=== PATIENT | male | born 1950 | race American Indian/Alaskan Native ===

== ENCOUNTER 2016-10-20 14:19 | Day surgery (SDC) | payer MEDICARE ==
[2016-10-20] MEDS ORDERED: NACL 0.9% 1000 ML 1,000 ML IV SCH (15:00)
[2016-10-20] MEDS ORDERED: WATER FOR IRRIG STERILE IR ONE (15:08)
[2016-10-20] MEDS ORDERED: DIPRIVAN 10 MG/ML IV ONE ×3 (15:16)
--- NOTE | 2016-10-20 16:06 | History and Physical Report ---
History of Present Illness Date of examination: 10/20/16 Date of admission: 10/20/2016 Chief complaint: Abdominal pain and nausea vomiting anorexia or weight loss constipation past history of colon cancer History of present illness: Patient is a 66-year-old male who presented with progressive anorexia and early satiety weight loss and diffuse abdominal pain but didn't particularly in the periumbilical region. She has a past history of colon cancer about 10 years ago. 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 Patient had been doing relatively well until recently when the symptoms began. In this period, he has lost more than 50 pounds. Patient now presents for further evaluation with an upper endoscopy as well as a colonoscopy. Of significant note about 2-3 years ago patient had a PET scan that showed an uptake in the duodenum. An upper endoscopy was done at the time with biopsied in the third portion of the duodenum with no abnormal mucosal findings at the time. This area was tattooed. On this examination, it is felt that even if they're findings, this may help direct patient's treatment. Past History Past Medical History: diabetes, GERD, hypertension Past Surgical History: Other (partial/ segmental colectomy for colon cancer) Medications and Allergies Allergies Allergy/AdvReac Type Severity Reaction Status Date / Time No Known Allergies Allergy Verified 09/05/13 10:04 Home Medications Medication Instructions Recorded Confirmed Last Taken Type Amlodipine Besylate/Benazepril 1 tab PO DAILY 02/06/13 02/11/14 10/18/16 History [Amlodipine-Benazepril 10-20 mg] Atenolol [Tenormin] 100 mg PO BID 02/06/13 02/11/14 10/18/16 History Doxazosin [Cardura] 2 mg PO QPM 02/06/13 02/11/14 10/18/16 History metFORMIN [Glucophage] 1 tab PO BID 02/06/13 02/11/14 10/18/16 06:00 History Insulin Glargine,Hum.rec.anlog 20 units SQ QPM 09/04/13 02/11/14 10/08/15 History [Lantus Solostar] Omeprazole [Omeprazole] 1 cap PO DAILY 09/04/13 02/11/14 10/18/16 History glyBURIDE/METFORMIN HCL 1 tab PO DAILY 09/04/13 02/11/14 10/18/16 History [Glyburide-Metformin 5-500 mg] Active Meds: Active Medications Sodium Chloride (Nacl 0.9% 1000 Ml) 1,000 mls @ 50 mls/hr IV DIRECT PATRICK Last Admin: 10/20/16 15:14 Dose: 50 mls/hr Review of Systems All systems: negative Exam - Constitutional Vitals: Temp Pulse Resp BP Pulse Ox 99.1 F 70 22 154/75 97 10/20/16 15:10 10/20/16 15:10 10/20/16 15:10 10/20/16 15:10 10/20/16 15:10 General appearance: Present: no acute distress, well-nourished - EENT Eyes: Present: PERRL ENT: hearing intact, clear oral mucosa - Neck Neck: Present: supple, normal ROM - Respiratory Respiratory effort: normal Respiratory: bilateral: CTA - Cardiovascular Heart Sounds: Present: S1 & S2. Absent: rub, click - Extremities Extremities: pulses symmetrical, No edema Peripheral Pulses: within normal limits - Abdominal General gastrointestinal: Present: soft, non-tender, non-distended, normal bowel sounds Male genitourinary: Present: normal - Integumentary Integumentary: Present: clear, warm, dry - Musculoskeletal Musculoskeletal: gait normal, strength equal bilaterally - Psychiatric Psychiatric: appropriate mood/affect, intact judgment & insight - Neurologic Neurologic: CNII-XII intact, moves all extremities Results - Labs Labs: Abnormal lab results 10/20/16 Range/Units 15:02 POC Glucose 200 H (70-105) Assessment and Plan Abdominal pain and anorexia early satiety and weight loss constipation and past history of colon cancer. Plan: Follow upper endoscopy and a full colonoscopy will be done.
--- NOTE | 2016-10-20 16:08 | Anesthesia Day of Surgery ---
Anesthesia Day of Surgery - Day of Surgery Patient Examined: Yes Patient H&P Reviewed: Yes Patient is NPO: Yes
--- NOTE | 2016-10-20 16:10 | Anesthesia Consultation ---
Anesthesia Consult and Med Hx Date of service: 10/20/16 - Airway Anesthetic Teeth Evaluation: Good ROM Head & Neck: Adequate Mental/Hyoid Distance: Adequate Mallampati Class: Class II Intubation Access Assessment: Probably Good - Pulmonary Exam CTA: Yes - Cardiac Exam Cardiac Exam: RRR - Pre-Operative Health Status ASA Pre-Surgery Classification: ASA3 Proposed Anesthetic Plan: MAC - Pulmonary Hx Smoking: No Hx Asthma: No Hx Respiratory Symptoms: No SOB: No COPD: No Hx Pneumonia: No Hx Sleep Apnea: No - Cardiovascular System Hx Hypertension: Yes Hx Coronary Artery Disease: No Hx Heart Attack/AMI: No - Central Nervous System Hx Seizures: No CVA: No - Gastrointestinal Hx Ulcer: No Hx Gastroesophageal Reflux Disease: No - Endocrine Hx Renal Disease: No Hx Liver Disease: No Hx Insulin Dependent Diabetes: Yes Hx Non-Insulin Dependent Diabetes: Yes Hx Thyroid Disease: No - Hematic Hx Anemia: Yes Hx Sickle Cell Disease: No - Other Systems Hx Cancer: Yes (colon ca sp partial colectomy) Hx Obesity: No - Additional Comments Anesthesia Medical History Comments: NAC
--- NOTE | 2016-10-20 16:11 | Operative Report ---
Operative Report Operative Report: Date of procedure: 10/20/2016 Procedure: Colonoscopy Attending physician: Jared Pratt MD Silk Soaker: Jared Pratt MD Indication: Patient is a 66-year-old male who presented with history of constipation and abdominal pain and abnormal weight loss. He has a past history of colon cancer and had a resection and for treatment many years ago he had been doing relatively well and had onset of these symptoms in the past few months. This procedure is done to evaluate patient so that treatment may be directed based on the findings. Consent: Informed consent was obtained after advising the patient and family regarding nature of this procedure, its indications, potential benefits as well as possible complications including but not limited to bleeding perforation and adverse reaction to medication, infection as well as other cardiopulmonary complications. An informed written and verbal consent was then obtained after due opportunity was provided for questions and answers. Monitoring: Patient was monitored continuously with pulse oximetry and electrocardiographic recordings as well as blood pressure recordings. Vital signs remained stable throughout this procedure with no untoward events. Preoperative assessment: Patient was assessed immediately prior to this procedure for capacity to tolerate monitored anesthesia care and moderate sedation as well as general anesthesia. Patient's ASA classification is 2, Mallampati class is 2, Hyomental distance is 3. Instrument: [employer] Simplifiedn videocolonoscope Medications: Propofol given intravenously in divided doses. For details please potential records. Description of procedure: Patient was placed in the left lateral decubitus position after achieving sedation, a digital rectal examination was performed following which the colonoscope was introduced into the anal verge and advanced to the cecum which was identified by the cecal valve, the appendiceal orifice, as well as by the cecal strap and direct transillumination. The colonoscope was subsequently withdrawn with careful inspection of all mucosal surfaces. Patient tolerated this procedure well and was subsequently taken to the recovery room. The following findings were noted. Findings: The sigmoid anastomosis was normal. The examination to the cecum was entirely normal. Previously tattooed areas at the sigmoid anastomosis appeared intact with no abnormalities seen around this areas. The small intestine was intubated for a distance of 70 cm. The entire examined segments of the small intestine appeared normal. On the retroflex view at the anal verge, patient had internal hemorrhoids. Impression: Normal colonoscopy Plan: Continue high-fiber diet and stool softeners. Patient may require additional imaging studies in light of his symptoms. Additional steps will be taken in outpatient follow-up.
--- NOTE | 2016-10-20 16:18 | Operative Report ---
Operative Report Operative Report: Date of procedure: 10/20/2016 Procedure: Esophagogastroduodenoscopy with multiple biopsies Attending physician: Jared Pratt MD Director [facility]: Jared Pratt MD Indication: Patient is a 66-year-old male who presented with history of dyspepsia with early satiety and nausea vomiting and weight loss with anorexia. An upper endoscopy is done to assess patient so that treatment may be directed based on the findings. Consent: Informed consent was obtained after advising the patient and family regarding nature of this procedure, its indications, potential benefits as well as possible complications including but not limited to bleeding perforation and adverse reaction to medication, infection as well as other cardiopulmonary complications. An informed written and verbal consent was then obtained after due opportunity was provided for questions and answers. Monitoring: Patient was monitored continuously with pulse oximetry and electrocardiographic recordings as well as blood pressure recordings. Vital signs remained stable throughout this procedure with no untoward events. Preoperative assessment: Patient was assessed immediately prior to this procedure for capacity to tolerate monitored anesthesia care and moderate sedation as well as general anesthesia. Patient's ASA classification is 2, Mallampati class is 2, Hyomental distance is 3. Instrument: StreamLine Calln video endoscope Medications: Propofol given intravenously in divided doses. For details please refer to anesthesia records. Description of procedure: Patient was placed in the left lateral decubitus position after achieving sedation, the endoscope was introduced into the esophagus under direct vision. It was then advanced beyond the esophagus into the stomach and then beyond the stomach into the duodenum and to the second portion of the duodenum. It was subsequently withdrawn with careful inspection of all mucosal surfaces with the following findings. Findings: Esophagus was normal. There was a small sliding hiatal hernia seen on entry into the stomach. This was otherwise normal. There was some erosions seen in the gastric antrum. Biopsies were obtained to rule out gastritis. The first portion of the duodenum was normal. The second portion of the duodenum was normal. In the third portion there was a previously examined segments that was tattooed. In this area, there was a prominent mucosal fold with no abnormalities seen around the fold except for its prominence. This was biopsied. More distal in the third portion of the duodenum, there was 2 areas where there were prominent mucosal folds again which were biopsied. There were no gross mucosal abnormalities otherwise. There was no gross mass lesions seen. The endoscope was advanced through this furthest distance as well as possible. It was subsequently withdrawn completely from patient after completing the examination. Impression: Prominent mucosal fold in the third portion of the duodenum which was biopsied. Note there was no lesions seen in this area. Gastric antral erosions status post biopsies. Plan: Follow pathology report and direct additional treatment based on pathology report. Patient may require additional imaging studies in light of his symptoms and past history of colon cancer. Additional steps will be taken in outpatient follow-up.
[2016-10-20 16:34] VITALS: BP 157/74
--- NOTE | 2016-10-20 16:38 | Post Anesthesia Evaluation ---
- Post Anesthesia Evaluation Patient Participated: Yes Airway Patent: Yes Stable Respiratory Function: Yes Nausea/Vomiting: No Temp > 96.8F: Yes Pain Manageable: Yes Adequeate Hydration: Yes Anesthesia Complications: No Block Receding Appropriately: Not Applicable Patient on Ventilator: No
== END 2016-10-20 14:20 | disposition home or self-care (01) ==
LOC: GIO 14:19
PROVIDERS: ATTEND Internal Medicine Gastroenterology
DX: K29.80 Duodenitis without bleeding (principal); K44.9 Diaphragmatic hernia without obstruction or gangrene; K64.8 Other hemorrhoids; I10 Essential (primary) hypertension; E11.9 Type 2 diabetes mellitus without complications; K21.9 Gastro-esophageal reflux disease without esophagitis; D64.9 Anemia, unspecified; Z85.038 Personal history of other malignant neoplasm of large intestine; Z90.49 Acquired absence of other specified parts of digestive tract; Z98.0 Intestinal bypass and anastomosis status; Z79.899 Other long term (current) drug therapy; Z79.4 Long term (current) use of insulin
CPT/HCPCS: 43239; 45378; 82962; 88305; 88342; J2704; J7030

== ENCOUNTER 2017-08-10 08:39 | Outpatient (CLI) | payer MEDICARE ==
--- NOTE | 2017-08-15 11:29 | PET Report ---
PET/CT:08/10/17 08:39:00 CLINICAL: Colon cancer restaging. RADIOPHARMACEUTICAL: 15.55mCi F18-FDG. COMPARISON: 08/15/13 PET/CT TECHNIQUE- Following intravenous injection of F-18 FDG and an approximately 60 minute uptake period, CT and PET images from the mid skull to the upper thighs were acquired with the patient in the fasted state. No contrast was administered. The CT protocol used for this PET CT study is designed for attenuation correction and anatomic localization of PET abnormalities. This sample preparation supervisor CT is not desired to produce and cannot replace, fqtom-ms-gnn-art diagnostic CT scans with specific imaging protocols for different body parts and indications. Plasma glucose at the time of this test: 188g/dl. The standardized uptake values (SUV) are normalized to patient body weight and indicate the highest activity concentration (SUV max) in a given disease site. FINDINGS: Brain--Physiologic FDG uptake in the visualized regions of the brain. Neck--Physiologic FDG uptake in mucosal structures and benign uptake in right neck muscles. Chest--Physiologic FDG uptake in mediastinal blood pool and myocardium. Lungs--No abnormal uptake. No pulmonary nodule or mass. Pleura/pericardium--No abnormal uptake. Thoracic nodes--No abnormal uptake. Hepatobiliary--No abnormal uptake. Liver background SUV mean, as a reference for comparing FDG studies, is 2.4 compared to 2.3 on the last exam. No liver mass. Spleen--No abnormal uptake. Pancreas--No abnormal uptake. Adrenal Glands--No abnormal uptake. Kidneys/Ureters/Bladder--No abnormal uptake. Abdominopelvic Nodes--No abnormal uptake. Bowel/Peritoneum/Mesentery--No abnormal uptake. The previous described abnormal left lower quadrant FDG uptake has resolved. No residual mass identified in the vicinity of surgical clips. Pelvic organs--No abnormal uptake. Bones/Soft Tissues--No abnormal uptake. Other findings: Benign FDG uptake in the hips and thighs. IMPRESSION- Positive response to treatment with resolution of pathologic FDG uptake in the left lower quadrant abdomen. No evidence of intraperitoneal, pulmonary, hepatic, rosie or skeletal metastasis.
== END 2017-08-10 08:40 | disposition home or self-care (01) ==
LOC: PET 08:39
DX: C18.5 Malignant neoplasm of splenic flexure (principal); R79.89 Other specified abnormal findings of blood chemistry; I10 Essential (primary) hypertension; E07.9 Disorder of thyroid, unspecified; D64.9 Anemia, unspecified; E11.9 Type 2 diabetes mellitus without complications; Z82.49 Family history of ischemic heart disease and other diseases of the circulatory system
CPT/HCPCS: 78815; 82962; A9552

== ENCOUNTER 2017-11-09 10:51 | Outpatient (CLI) | payer MEDICARE ==
--- NOTE | 2017-11-10 11:49 | PET Report ---
PET/CT:11/09/17 10:51:00 CLINICAL: Colon cancer restaging. RADIOPHARMACEUTICAL: 12.705mCi F18-FDG. COMPARISON: 08/10/17 PET/CT TECHNIQUE- Following intravenous injection of F-18 FDG and an approximately 60 minute uptake period, CT and PET images from the mid skull to the upper thighs were acquired with the patient in the fasted state. No contrast was administered. The CT protocol used for this PET CT study is designed for attenuation correction and anatomic localization of PET abnormalities. This pickle processor CT is not desired to produce and cannot replace, lhbpk-df-vxz-art diagnostic CT scans with specific imaging protocols for different body parts and indications. Plasma glucose the time of this test: 115g/dl. The standardized uptake values (SUV) are normalized to patient body weight and indicate the highest activity concentration (SUV max) in a given disease site. FINDINGS: Brain--Physiologic FDG uptake in the visualized regions of the brain. Neck--Physiologic FDG uptake in mucosal structures. Chest--Physiologic FDG uptake in mediastinal blood pool and myocardium. Lungs--No abnormal uptake. No pulmonary nodule or mass. Pleura/pericardium--No abnormal uptake. A tiny left pleural effusion. Thoracic nodes--No abnormal uptake. Hepatobiliary--No abnormal uptake. Liver background SUV mean, as a reference for comparing FDG studies, is 3.5 . No liver mass. Spleen--No abnormal uptake. Pancreas--No abnormal uptake. Adrenal Glands--No abnormal uptake. Kidneys/Ureters/Bladder--No abnormal uptake. Abdominopelvic Nodes--No abnormal uptake in no lymphadenopathy. Bowel/Peritoneum/Mesentery--No abnormal uptake. Status post partial colectomy with multiple anastomoses and numerous surgical clips in the abdomen. No mass. Pelvic organs--No abnormal uptake. Bones/Soft Tissues--No abnormal uptake. Other findings: IVC filter IMPRESSION- Negative study with no evidence of disease recurrence or metastasis.
== END 2017-11-09 10:52 | disposition home or self-care (01) ==
LOC: PET 10:51
DX: C18.9 Malignant neoplasm of colon, unspecified (principal); J90 Pleural effusion, not elsewhere classified; I10 Essential (primary) hypertension; E11.9 Type 2 diabetes mellitus without complications
CPT/HCPCS: 78815; 82962; A9552

== ENCOUNTER 2018-10-18 13:52 | Day surgery (SDC) | payer MEDICARE ==
[2018-10-18] MEDS ORDERED: XYLOCAINE MPF 2% ONE (14:00)
[2018-10-18] MEDS: NACL 0.9% 1000 ML 1,000 ML IV SCH ×2 (14:52→15:57)
[2018-10-18] MEDS ORDERED: DIPRIVAN 10 MG/ML IV ONE (14:54)
--- NOTE | 2018-10-18 15:33 | Anesthesia Day of Surgery ---
Anesthesia Day of Surgery - Day of Surgery Patient Examined: Yes Patient H&P Reviewed: Yes Patient is NPO: Yes Beta Blockers: No
--- NOTE | 2018-10-18 15:34 | Anesthesia Consultation ---
Anesthesia Consult and Med Hx Date of service: 10/18/18 - Airway Anesthetic Teeth Evaluation: Good ROM Head & Neck: Adequate Mental/Hyoid Distance: Adequate Mallampati Class: Class III Intubation Access Assessment: Good - Pulmonary Exam CTA: Yes - Pre-Operative Health Status ASA Pre-Surgery Classification: ASA3 Proposed Anesthetic Plan: MAC - Pulmonary Hx Smoking: No Hx Asthma: No Hx Respiratory Symptoms: No SOB: No COPD: No Hx Pneumonia: No Hx Sleep Apnea: No - Cardiovascular System Hx Hypertension: Yes Hx Coronary Artery Disease: No Hx Heart Attack/AMI: No Hx Angina: No Hx Percutaneous Transluminal Coronary Angioplasty (PTCA): No Hx Cardia Arrhythmia: No Hx Pacemaker: No Hx Internal Defibrillator: No Hx Valvular Heart Disease: No Hx Heart Murmur: No Hx Peripheral Vascular Disease: No - Central Nervous System Hx Neuromuscular Disorder: No Hx Seizures: No CVA: No Hx Back Pain: No Hx Psychiatric Problems: No - Gastrointestinal Hx Ulcer: No Hx Gastroesophageal Reflux Disease: No - Endocrine Hx Renal Disease: No Hx End Stage Renal Disease: No Hx Cirrhosis: No Hx Liver Disease: No Hx Insulin Dependent Diabetes: Yes Hx Non-Insulin Dependent Diabetes: Yes Hx Thyroid Disease: No Hx Hypothyroidism: No Hx Hyperthyroidism: No - Hematic Hx Anemia: Yes Hx Sickle Cell Disease: No - Other Systems Hx Alcohol Use: No Hx Substance Use: No Hx Cancer: Yes Hx Obesity: No
[2018-10-18 15:46] VITALS: BP 151/65
--- NOTE | 2018-10-18 15:49 | Operative Report ---
Operative Report Operative Report: Date of procedure: 10/18/2018 Procedure: Flexible Sigmoidoscopy with biopsies. Attending physician: Jared Pratt MD Collections Technician: Jared Pratt MD Indication: Patient is a 68-year-old male who presents for flexible sigmoidoscopy for evaluation of recurrent rectal pain and rectal bleeding and change in bowel habits . Patient has a past history of colon cancer post resection. The sigmoidoscopy serves to evaluate patient so that treatment may be directed based on the findings. Consent: Informed consent was obtained after advising the patient and family regarding nature of this procedure, its indications, potential benefits as well as possible complications including but not limited to bleeding perforation and adverse reaction to medication, infection as well as other cardiopulmonary complications. An informed written and verbal consent was then obtained after due opportunity was provided for questions and answers. Monitoring: Patient was monitored continuously with pulse oximetry and electrocardiographic recordings as well as blood pressure recordings. Vital signs remained stable throughout this procedure with no untoward events. Preoperative assessment: Patient was assessed immediately prior to this procedure for capacity to tolerate monitored anesthesia care and moderate sedation as well as general anesthesia. Patient's ASA classification is 2, Mallampati class is 2, Hyomental distance is 3. Instrument: Olympus video Endoscope: [id number] Medications: Propofol given intravenously in divided doses. For details please refer to anesthesia records. Description of procedure: Patient was placed in the left lateral decubitus position after achieving sedation, a digital rectal examination was performed following which the endoscope was introduced into the anal verge and advanced to the cecum. Patient had minimal colonic tissue left. There was an anastomosis in the sigmoid colon which appeared normal. Sections of the colon appeared normal however very closel to the verge, There were mucosal changes in the rectum that were friable appearing mucosa with edema. The rectal tissue in this area appeared reticulated and hypervascular . Several biopsies were obtained close to the anal verge. The endoscope was subsequently withdrawn . Careful inspection of all mucosal surfaces done. On the retroflexed view at the anal verge, patient had internal hemorrhoids. This however did not appear prominent and did not have any gross changes. Patient tolerated this procedure well and was subsequently taken to the recovery room. The following findings were noted. Findings: The rectal tissue in the area close to the anal verge appeared reticulated edematous and hypervascular . Several biopsies were obtained close to the anal verge. On the retroflexed view at the anal verge, patient had internal hemorrhoids. Sigmoid colon anastomosis appeared normal .no other gross abnormalities were seen. Impression: Abnormal appearing rectal tissue close to the anal verge. Internal hemorrhoids. Plan: Follow pathology report High-fiber diet. Prn stool softeners.
--- NOTE | 2018-10-18 15:49 | Discharge Summary ---
Short Stay Discharge Plan Activity: advance as tolerated Weight Bearing Status: Weight Bear as Tolerated Diet: regular Additional Instructions: Post Sedation D/C Instructions When you return home you may resume your regular diet unless otherwise directed. - Go directly home from the hospital and rest quietly. You may resume normal activities tomorrow. - Do NOT drive, return to work, operate any machinery or make any important personal or business decisions today. -Do NOT drink any alcohol or take nerve or sleeping drugs. They add to the effects of the medicine still present in your body. You may notice a small amt of bleeding with stools from the biopsy. This is common. Follow up with Dr. Pratt in two weeks re: biopsy results. Follow up with: ROMÁN ESPINOSA MD [Primary Care Provider] - 7 Days
== END 2018-10-18 13:53 | disposition home or self-care (01) ==
LOC: GIO 13:52
PROVIDERS: ATTEND Internal Medicine Gastroenterology
DX: K62.89 Other specified diseases of anus and rectum (principal); K64.8 Other hemorrhoids; K60.3 Anal fistula; K62.5 Hemorrhage of anus and rectum; K21.9 Gastro-esophageal reflux disease without esophagitis; I10 Essential (primary) hypertension; E11.9 Type 2 diabetes mellitus without complications; D64.9 Anemia, unspecified; Z80.0 Family history of malignant neoplasm of digestive organs; Z90.49 Acquired absence of other specified parts of digestive tract; Z85.038 Personal history of other malignant neoplasm of large intestine; Z79.899 Other long term (current) drug therapy; Z79.84 Long term (current) use of oral hypoglycemic drugs; Z79.4 Long term (current) use of insulin; Z86.718 Personal history of other venous thrombosis and embolism; Z86.711 Personal history of pulmonary embolism; Z98.890 Other specified postprocedural states; Z82.49 Family history of ischemic heart disease and other diseases of the circulatory system
CPT/HCPCS: 45331; 82962; 88305; J2704; J7030

== ENCOUNTER 2018-11-15 10:22 | Outpatient (CLI) | payer MEDICARE ==
--- NOTE | 2018-11-15 15:38 | PET Report ---
PET/CT HISTORY: C18.5. Restaging colon cancer TECHNIQUE: The patient's fasting blood glucose was 94. The patient weighed 78 kg. The patient was injected with 10.7 mCi of FDG in the left antecubital fossa at 11:05 AM and imaging was started appro ximately one hour after injection. The patient was imaged from the skull base to the thighs. COMPARISON: PET scan from 11/09/2017 FINDINGS: FDG findings: There are a couple slightly enlarged lymph nodes in the left lower neck measuring up t o 1 cm short axis as seen on image #[address] exam with max SUV of 7.7. There is also a 1.6 cm per ipancreatic lymph node in the midline on image #132 with max SUV of 11.4. Finally, there is patchy ra diotracer uptake in the gluteal musculature and the left iliacus muscle in the pelvis which may be re lated to use. Non-FDG findings: No significant incidental findings in the chest, abdomen, or pelvis. IMPRESSION: New adenopathy as outlined above with dominant lymph node in the retroperitoneum directly in the midline adjacent to the pancreas with max SUV of 11.4. Findings are worrisome for metastatic disease. Signer Name: Ryan Tenorio MD Signed: 11/15/2018 3:34 PM Workstation Name: [id number]
== END 2018-11-15 10:23 | disposition home or self-care (01) ==
LOC: PET 10:22
PROVIDERS: ATTEND Internal Medicine Hematology & Oncology
DX: C18.5 Malignant neoplasm of splenic flexure (principal); I10 Essential (primary) hypertension; K21.9 Gastro-esophageal reflux disease without esophagitis; E11.9 Type 2 diabetes mellitus without complications
CPT/HCPCS: 78815; 82962; A9552

== ENCOUNTER 2019-01-09 08:08 | Day surgery (SDC) | payer MEDICARE ==
[2019-01-09 08:43] VITALS: BP 179/72
[2019-01-09] MEDS ORDERED: ZOFRAN IV ONE (09:00)
[2019-01-09] MEDS ORDERED: DILAUDID IV ONE (09:31)
== END 2019-01-09 10:20 | disposition home or self-care (01) ==
LOC: CATHLABREC 08:08
PROVIDERS: ATTEND Internal Medicine Hematology & Oncology
DX: C77.2 Secondary and unspecified malignant neoplasm of intra-abdominal lymph nodes (principal); I10 Essential (primary) hypertension; E11.9 Type 2 diabetes mellitus without complications; D64.9 Anemia, unspecified; Z53.8 Procedure and treatment not carried out for other reasons; Z80.0 Family history of malignant neoplasm of digestive organs; Z91.041 Radiographic dye allergy status; Z79.899 Other long term (current) drug therapy; Z79.84 Long term (current) use of oral hypoglycemic drugs; Z79.4 Long term (current) use of insulin

== ENCOUNTER 2020-10-17 23:57 | Inpatient (IN) | payer MEDICARE ==
[2020-10-18] MEDS ORDERED: ONDANSETRON 4 MG/2 ML INJ IV ONE (03:18)
[2020-10-18] MEDS ORDERED: MORPHINE 4 MG/1 ML INJ IV ONE (03:18)
--- NOTE | 2020-10-18 03:25 | Emergency Department Report ---
ED Abdominal Pain HPI - General Chief Complaint: Abdominal Pain Stated Complaint: THINKS HE MIGHT HAVE A BLOOD CLOT Time Seen by Provider: 10/18/20 03:11 Source: patient, EMS Mode of arrival: Stretcher Limitations: Other - History of Present Illness Initial Comments: Patient is 70 years old male with history of colon cancer, diagnosed in 2005. Patient stated that he had surgery and chemotherapy for that. Patient also had history of diabetes and hypertension. Patient presented to the emergency room from a local half-way via EMS for evaluation of abdominal pain. Patient stated that his abdominal pain has been going on for few days. Patient describes his pain as diffuse, crampy in nature with no radiation. Patient denied any fever or chills. Patient is nauseated but no vomiting . No diarrhea. MD Complaint: abdominal pain Location: diffuse Migration to: no migration Severity: moderate Quality: cramping Associated Symptoms: denies other symptoms - Related Data Home Medications Medication Instructions Recorded Confirmed Last Taken Amlodipine Besylate/Benazepril 10 - 20 tab PO DAILY 06/11/14 10/18/20 02/03/17 [amLODIPine-Benazepril 10/20 mg] Omeprazole 20 mg PO DAILY 06/11/14 10/18/20 02/03/17 Doxazosin [Cardura] 2 mg PO BID 02/04/17 10/18/20 02/03/17 Atenolol [Tenormin] 100 mg PO DAILY 10/18/20 10/18/20 Unknown Methocarbamol 500 mg PO DAILY 10/18/20 10/18/20 Unknown Procrit 20,000 units SC 1XW 10/18/20 10/18/20 Unknown Allergies Allergy/AdvReac Type Severity Reaction Status Date / Time Sulfa (Sulfonamide Allergy Unknown Verified 10/18/20 17:45 Antibiotics) IV DYE AdvReac Severe Shortness Uncoded 09/24/20 12:09 of Breath ED Review of Systems ROS: Stated complaint: THINKS HE MIGHT HAVE A BLOOD CLOT Other details as noted in HPI Comment: All other systems reviewed and negative Constitutional: denies: chills, fever Respiratory: denies: cough, shortness of breath, SOB with exertion Gastrointestinal: abdominal pain. denies: nausea, vomiting, diarrhea, constipation, hematemesis, melena, hematochezia Musculoskeletal: denies: back pain Neurological: denies: headache, weakness, numbness, paresthesias, confusion ED Past Medical Hx - Past Medical History Previous Medical History?: Yes Hx Hypertension: Yes Hx Heart Attack/AMI: No Hx Congestive Heart Failure: No Hx Diabetes: Yes Hx Deep Vein Thrombosis: Yes Hx Pulmonary Embolism: Yes Hx GERD: Yes Hx Liver Disease: No Hx Renal Disease: No Hx Sickle Cell Disease: No Hx Seizures: No Hx Kidney Stones: No Hx Asthma: No Hx COPD: No Hx Tuberculosis: No Hx Dementia: No Additional medical history: 2 DVT'S in LLE, Picc line RUE - Surgical History Past Surgical History?: Yes Hx Coronary Stent: No Hx Pacemaker: No Hx Internal Defibrillator: No Additional Surgical History: colon resection, small bowel Bypass, fistula repair, colostomy reversal - Social History Smoking Status: Never Smoker - Medications Home Medications: Home Medications Medication Instructions Recorded Confirmed Last Taken Type Amlodipine Besylate/Benazepril 10 - 20 tab PO DAILY 06/11/14 10/18/20 02/03/17 History [amLODIPine-Benazepril 10/20 mg] Omeprazole 20 mg PO DAILY 06/11/14 10/18/20 02/03/17 History Doxazosin [Cardura] 2 mg PO BID 02/04/17 10/18/20 02/03/17 History Atenolol [Tenormin] 100 mg PO DAILY 10/18/20 10/18/20 Unknown History Methocarbamol 500 mg PO DAILY 10/18/20 10/18/20 Unknown History Procrit 20,000 units SC 1XW 10/18/20 10/18/20 Unknown History ED Physical Exam - General Limitations: Other General appearance: alert, in no apparent distress - Head Head exam: Present: atraumatic, normocephalic, normal inspection - Eye Eye exam: Present: normal appearance, PERRL - ENT ENT exam: Present: normal exam, normal orophraynx, mucous membranes moist - Neck Neck exam: Present: normal inspection, full ROM. Absent: tenderness, meningismus - Respiratory Respiratory exam: Present: normal lung sounds bilaterally - Cardiovascular Cardiovascular Exam: Present: regular rate, normal rhythm, normal heart sounds - GI/Abdominal GI/Abdominal exam: Present: soft, normal bowel sounds. Absent: distended, tenderness, guarding, rebound, rigid, organomegaly, mass, bruit, pulsatile mass, hernia - Extremities Exam Extremities exam: Present: pedal edema - Back Exam Back exam: Present: normal inspection, full ROM. Absent: CVA tenderness (R), CVA tenderness (L) - Neurological Exam Neurological exam: Present: alert, oriented X3, CN II-XII intact - Psychiatric Psychiatric exam: Present: normal mood - Skin Skin exam: Present: warm, intact, normal color ED Course Vital Signs 10/18/20 10/18/20 10/18/20 03:28 03:30 03:46 Temperature Pulse Rate 63 62 Respiratory 14 13 Rate Blood Pressure 148/72 143/64 O2 Sat by Pulse 100 100 99 Oximetry 10/18/20 10/18/20 10/18/20 04:04 04:16 04:30 Temperature Pulse Rate 62 64 71 Respiratory 16 16 21 Rate Blood Pressure 142/67 142/67 142/67 O2 Sat by Pulse 100 100 100 Oximetry 10/18/20 10/18/20 10/18/20 04:46 05:00 05:16 Temperature Pulse Rate 63 65 60 Respiratory 16 14 14 Rate Blood Pressure 145/83 150/67 154/71 O2 Sat by Pulse 100 99 100 Oximetry 10/18/20 10/18/20 10/18/20 05:30 05:45 06:00 Temperature Pulse Rate 59 L 60 59 L Respiratory 13 11 L 11 L Rate Blood Pressure 148/66 129/59 129/59 O2 Sat by Pulse 99 100 100 Oximetry 10/18/20 10/18/20 10/18/20 06:15 06:30 06:46 Temperature Pulse Rate 65 63 61 Respiratory 11 L 14 11 L Rate Blood Pressure 131/63 155/88 151/71 O2 Sat by Pulse 100 100 100 Oximetry 10/18/20 10/18/20 10/18/20 07:00 07:16 07:30 Temperature Pulse Rate 65 56 L 54 L Respiratory 13 9 L 9 L Rate Blood Pressure 162/93 159/66 142/65 O2 Sat by Pulse 99 100 99 Oximetry 10/18/20 10/18/20 10/18/20 07:46 08:00 08:16 Temperature Pulse Rate 58 L 55 L 60 Respiratory 10 L 11 L 10 L Rate Blood Pressure 140/65 134/63 119/65 O2 Sat by Pulse 100 98 100 Oximetry 10/18/20 10/18/20 10/18/20 08:30 08:46 09:00 Temperature Pulse Rate 55 L 58 L 62 Respiratory 10 L 12 17 Rate Blood Pressure 119/65 145/68 158/73 O2 Sat by Pulse 100 100 100 Oximetry 10/18/20 10/18/20 10/18/20 09:15 09:16 09:30 Temperature Pulse Rate 58 L 56 L Respiratory 15 14 Rate Blood Pressure 158/73 158/73 O2 Sat by Pulse 100 100 100 Oximetry 10/18/20 10/18/20 10/18/20 09:34 09:40 09:46 Temperature 95.8 F L 95.8 F L Pulse Rate 54 L Respiratory 15 Rate Blood Pressure 158/73 O2 Sat by Pulse 100 Oximetry 10/18/20 10/18/20 10/18/20 10:00 10:16 10:30 Temperature Pulse Rate 51 L 51 L 53 L Respiratory 10 L 10 L 12 Rate Blood Pressure 142/68 135/60 130/58 O2 Sat by Pulse 100 100 100 Oximetry 10/18/20 10/18/20 10/18/20 10:46 10:47 10:48 Temperature Pulse Rate 50 L 50 L 50 L Respiratory Rate Blood Pressure 120/53 120/53 120/53 O2 Sat by Pulse Oximetry 10/18/20 10/18/20 10/18/20 11:00 11:35 12:00 Temperature 97.7 F Pulse Rate 50 L 54 L Respiratory 10 L 16 Rate Blood Pressure 142/64 137/63 O2 Sat by Pulse 100 100 Oximetry 10/18/20 10/18/20 10/18/20 13:00 14:00 15:00 Temperature Pulse Rate 52 L 57 L 55 L Respiratory 12 10 L 12 Rate Blood Pressure 147/67 143/66 148/44 O2 Sat by Pulse 100 99 100 Oximetry 10/18/20 10/18/20 10/18/20 16:00 17:00 17:35 Temperature 97.5 F L Pulse Rate 56 L 56 L Respiratory 11 L 15 Rate Blood Pressure 141/66 160/77 O2 Sat by Pulse 100 100 Oximetry 10/18/20 18:00 Temperature Pulse Rate 59 L Respiratory 15 Rate Blood Pressure 160/70 O2 Sat by Pulse 100 Oximetry ED Medical Decision Making - Lab Data Result diagrams: 10/18/20 04:03 10/18/20 04:03 - Radiology Data Radiology results: report reviewed - Medical Decision Making Patient is 70 years old male with history of colon cancer, diagnosed in 2005. Patient stated that he had surgery and chemotherapy for that. Patient also had history of diabetes and hypertension. Patient presented to the emergency room from a local half-way via EMS for evaluation of abdominal pain. Patient stated that his abdominal pain has been going on for few days. Patient descr ibes his pain as diffuse, crampy in nature with no radiation. Patient denied any fever or chills. Patient is nauseated but no vomiting . No diarrhea. Patient started on normal saline, morphine and Zofran. Labs reviewed and showed a creatinine of 2.8 and a BUN of 58 increased from his baseline indicating acute on chronic renal failure most likely secondary to dehydration secondary to nausea. CT abdomen and pelvis showed no acute abnormalities. I discussed the patient with Dr. Portillo, he agreed to admit the patient to medical service for further management. Critical Care Time: Yes Critical care time in (mins) excluding proc time.: 30 Critical care attestation.: If time is entered above; I have spent that time in minutes in the direct care of this critically ill patient, excluding procedure time. ED Disposition Clinical Impression: Acute abdominal pain, Nausea, Acute on chronic renal failure Disposition: OP ADMIT IP TO THIS HOSP Is pt being admited?: Yes Condition: Stable
--- NOTE | 2020-10-18 04:19 | Cat Scan Report ---
CT ABDOMEN AND PELVIS WITHOUT CONTRAST INDICATION / CLINICAL INFORMATION: Abdominal Pain. History of colon cancer. TECHNIQUE: Axial CT images were obtained through the abdomen and pelvis without IV contrast. All CT scans at this location are performed using CT dose reduction for ALARA by means of automated exposure control. COMPARISON: CT dated 11/07/16. PET CT dated 11/15/18 FINDINGS: LOWER CHEST: Bibasilar bronchiectasis is increased since prior study. LIVER: No significant abnormality. GALLBLADDER: Cholecystectomy. BILE DUCTS: No significant abnormality. PANCREAS: No significant abnormality. SPLEEN: No significant abnormality. ADRENALS: No significant abnormality. RIGHT KIDNEY / URETER: No significant abnormality. LEFT KIDNEY / URETER: No significant abnormality. STOMACH / SMALL BOWEL: Postoperative findings of small bowel loops some of which are fluid-filled and mildly dilated. COLON: Postoperative findings. Moderate amount of fecal material in the remaining colon. APPENDIX: Not visualized. PERITONEUM: No free fluid. No free air. No fluid collection. LYMPH NODES: No significant adenopathy. AORTA / ARTERIES: Moderate atherosclerotic calcification without acute abnormality. IVC / VEINS: IVC filter, unchanged. URINARY BLADDER: No significant abnormality. REPRODUCTIVE ORGANS: No significant abnormality. ADDITIONAL FINDINGS: Severe body wall edema involving the lower chest, abdomen, and pelvis. This repr esents significant change since prior studies. SKELETAL SYSTEM: No significant abnormality. IMPRESSION: 1. No definite inflammatory process. 2. Postoperative findings of small and large bowel mild small bowel dilation which could represent en teritis, ileus, or early obstruction. Follow-up study with IV contrast may be helpful for further makeda luation as the patient's clinical condition permits. 3. Severe body wall edema may represent anasarca or other fluid imbalance. 4. IVC Filter Recommendation: IVC filters should be removed if possible when they are no longer clini rudy necessary. (1) Refer to the established IVC filter management plan; (2) If there is no establis hed plan for the patient's IVC filter, consider referral to interventional/vascular clinician on a no nemergent basis for evaluation. Signer Name: Brennan Almeida MD Signed: 10/18/2020 4:15 AM Workstation Name: [id number]
[2020-10-18 04:47] LABS: Alanine Aminotransferase 18 units/L (7-56); BUN/Creatinine Ratio 19; Blood Urea Nitrogen 54 mg/dL (9-20); Calcium 7.9 mg/dL (8.4-10.2); Hemolysis Index 47
[2020-10-18 04:53] LABS: Mean Corpuscular HGB Conc 30 % (32-34); Mean Corpuscular Volume 104 fl (84-94); Platelet Count 150 K/mm3 (140-440); Red Blood Count 3.77 M/mm3 (3.65-5.03); Red Cell Distribution Width 19.8 % (13.2-15.2)
[2020-10-18 04:56] LABS: Hematocrit 39.2 % (35.5-45.6); Hemoglobin 11.8 gm/dl (11.8-15.2)
[2020-10-18 05:29] LABS: Bilirubin,Direct < 0.2 mg/dL (0-0.2)
[2020-10-18] MEDS ORDERED: SODIUM CHLORIDE 0.9% 1000 ML 1,000 ML IV ONE (05:35)
[2020-10-18] MEDS ORDERED: ONDANSETRON 4 MG/2 ML INJ IV PRN (05:47)
[2020-10-18] MEDS ORDERED: oxyCODONE /ACETAMINOPHEN 5-325MG TAB PO PRN (05:47)
[2020-10-18] MEDS ORDERED: ALBUTEROL 2.5 MG/3 ML NEBU IH PRN (05:47)
[2020-10-18] MEDS ORDERED: ACETAMINOPHEN 325 MG TAB PO PRN (05:47)
--- NOTE | 2020-10-18 05:58 | History and Physical Report ---
History of Present Illness Date of examination: 10/18/20 Date of admission: 10/18/20 Chief complaint: Abdominal pain/nausea History of present illness: 70 years old male with history of colon cancer, diagnosed in 2005, diabetes and hypertension was brought to the emergency room because of abdominal pain and nausea. Patient stated that he had surgery and chemotherapy for colon cancer. Patient presented to the emergency room from a local detention via EMS for evaluation of abdominal pain. Patient stated that his abdominal pain has been going on for few days. Patient describes his pain as diffuse, crampy in nature with no radiation. Patient denied any fever or chills. Patient is nauseated but no vomiting . No diarrhea. In the emergency room patient is found to have BUN of 54 and creatinine 2.[address] scan of the abdomen shows no definite inflammatory process. Postoperative finding of small and large bowel mid small bowel dilatation which could represent enteritis, ileus or early obstruction Past History Past Medical History: diabetes, hypertension, other (Colon cancer) Medications and Allergies Allergies Allergy/AdvReac Type Severity Reaction Status Date / Time IV DYE AdvReac Severe Shortness Uncoded 09/24/20 12:09 of Breath Home Medications Medication Instructions Recorded Confirmed Last Taken Type Doxazosin [Cardura] 4 mg PO QPM 02/06/13 11/06/19 06/03/19 20:00 History Insulin Glargine,Hum.rec.anlog 20 units SQ QPM 09/04/13 11/06/19 06/02/19 20:00 History [Lantus Solostar] Omeprazole 1 cap PO DAILY 09/04/13 11/06/19 11/05/19 History Amlodipine Besylate/Benazepril 1 tab PO DAILY 06/11/14 02/04/17 02/03/17 History [amLODIPine-Benazepril 10/20 mg] Insulin Glargine,Hum.rec.anlog 20 units SUB-Q HS 06/11/14 02/04/17 02/03/17 History [Lantus Solostar] Omeprazole 20 mg PO DAILY 06/11/14 02/04/17 02/03/17 History atenoloL [Atenolol] 100 mg PO BID 06/11/14 02/04/17 02/03/17 History glyBURIDE/METFORMIN HCL 10 tab PO DAILY 06/11/14 02/04/17 02/03/17 History [Glyburide-Metformin 5-500 mg] Doxazosin [Cardura] 2 mg PO BID 02/04/17 02/04/17 02/03/17 History Insulin Glargine [Lantus] 20 unit SUB-Q QHS 02/04/17 02/04/17 02/03/17 History Simethicone [Gas Relief] 80 mg PO ACHS 02/04/17 02/04/17 02/03/17 History Warfarin [Coumadin] 7.5 mg PO QDAY 02/04/17 02/04/17 02/02/17 History metFORMIN [Glucophage] 500 mg PO BID 02/04/17 02/04/17 02/03/17 History oxyCODONE [Roxicodone] 5 mg PO Q4HR PRN 02/04/17 02/04/17 02/03/17 History Oxycodone HCl [oxyCODONE] 20 mg PO BID PRN 11/06/19 11/06/19 Unknown History Loperamide [Imodium] 2 mg PO Q2H PRN #20 capsule 11/09/19 Unknown Rx amLODIPine 10 mg PO DAILY #30 tablet 11/09/19 Unknown Rx hydrALAZINE [Apresoline TAB] 50 mg PO TID #60 tab 11/09/19 Unknown Rx Active Meds: Active Medications Acetaminophen (Acetaminophen 325 Mg Tab) 650 mg PO Q4H PRN PRN Reason: Pain MILD(1-3)/Fever >100.5/CHAUDHARY Albuterol (Albuterol 2.5 Mg/3 Ml Nebu) 2.5 mg IH Q4HRT PRN PRN Reason: Shortness Of Breath Albuterol/Ipratropium (Ipratropium/Albuterol Sulfate 3 Ml Ampul.Neb) 1 ampul IH Q6HRT PATRICK Amlodipine Besylate (Amlodipine 10 Mg Tab) 10 mg PO DAILY PATRICK Doxazosin Mesylate (Doxazosin 1 Mg Tab) 2 mg PO BID PATRICK Famotidine (Famotidine 20 Mg/2 Ml Inj) 20 mg IV BID PATRICK Hydralazine HCl (Hydralazine 100 Mg Tab) 50 mg PO TID PATRICK Hydromorphone HCl (Hydromorphone 1 Mg/1 Ml Inj) 0.5 mg IV Q3H PRN PRN Reason: Pain , Severe (7-10) Sodium Chloride (Nacl 0.9% 1000 Ml) 1,000 mls @ 999 mls/hr IV BOLUS ONE Stop: 10/18/20 06:35 Dextrose/Sodium Chloride (D5/0.45ns) 1,000 mls @ 100 mls/hr IV DIRECT PATRICK Insulin Glargine (Insulin Glargine 100 Units/Ml) 20 units SUB-Q QHS PATRICK Miscellaneous Medication (Amlodipine Besylate/Benazepril [Amlodipine-Benazepril 10/20 Mg]) 1 tab PO DAILY PATRICK Miscellaneous Medication (Atenolol [Atenolol]) 100 mg PO BID PATRICK Miscellaneous Medication (Glyburide/Metformin Hcl [Glyburide-Metformin 5-500 Mg]) 10 tab PO DAILY PATRICK Miscellaneous Medication (Omeprazole [Omeprazole]) 1 cap PO DAILY PATRICK Ondansetron HCl (Ondansetron 4 Mg/2 Ml Inj) 4 mg IV Q8H PRN PRN Reason: Nausea And Vomiting Oxycodone/Acetaminophen (Oxycodone /Acetaminophen 5-325mg Tab) 1 tab PO Q6H PRN PRN Reason: Pain, Moderate (4-6) Simethicone (Simethicone 80 Mg Chew Tab) 80 mg PO ACHS PATRICK Sodium Chloride (Sodium Chloride 0.9% 10 Ml Flush Syringe) 10 ml IV BID PATRICK Sodium Chloride (Sodium Chloride 0.9% 10 Ml Flush Syringe) 10 ml IV PRN PRN PRN Reason: LINE FLUSH Warfarin Sodium (Warfarin 7.5 Mg Tab) 7.5 mg PO QDAY PATRICK; Protocol Review of Systems Gastrointestinal: abdominal pain, nausea Exam - Constitutional General appearance: Present: no acute distress, well-nourished - EENT Eyes: Present: PERRL ENT: hearing intact, clear oral mucosa - Neck Neck: Present: supple, normal ROM - Respiratory Respiratory effort: normal Respiratory: bilateral: CTA - Cardiovascular Heart Sounds: Present: S1 & S2. Absent: rub, click - Extremities Extremities: pulses symmetrical, No edema Peripheral Pulses: within normal limits - Abdominal General gastrointestinal: Present: soft, non-tender, non-distended, normal bowel sounds Male genitourinary: Present: normal - Integumentary Integumentary: Present: clear, warm, dry - Musculoskeletal Musculoskeletal: gait normal, strength equal bilaterally - Psychiatric Psychiatric: appropriate mood/affect, intact judgment & insight - Neurologic Neurologic: CNII-XII intact, moves all extremities Results - Labs CBC & Chem 7: 10/18/20 04:03 10/18/20 04:03 Labs: Laboratory Last Values WBC 9.6 K/mm3 (4.5-11.0) 10/18/20 04:03 RBC 3.77 M/mm3 (3.65-5.03) 10/18/20 04:03 Hgb 11.8 gm/dl (11.8-15.2) 10/18/20 04:03 Hct 39.2 % (35.5-45.6) 10/18/20 04:03 MCV 104 fl (84-94) H 10/18/20 04:03 MCH 31 pg (28-32) 10/18/20 04:03 MCHC 30 % (32-34) L 10/18/20 04:03 RDW 19.8 % (13.2-15.2) H 10/18/20 04:03 Plt Count 150 K/mm3 (140-440) 10/18/20 04:03 Lymph % (Auto) Branch Account Executive 10/18/20 04:03 [place] % (Auto) Branch Account Executive 10/18/20 04:03 Eos % (Auto) Branch Account Executive 10/18/20 04:03 Baso % (Auto) Branch Account Executive 10/18/20 04:03 Lymph # (Auto) Branch Account Executive 10/18/20 04:03 [place] # (Auto) Branch Account Executive 10/18/20 04:03 Eos # (Auto) Branch Account Executive 10/18/20 04:03 Baso # (Auto) Branch Account Executive 10/18/20 04:03 Seg Neutrophils % Branch Account Executive 10/18/20 04:03 Seg Neutrophils # Branch Account Executive 10/18/20 04:03 Sodium 141 mmol/L (137-145) 10/18/20 04:03 Potassium 4.4 mmol/L (3.6-5.0) 10/18/20 04:03 Chloride 118.8 mmol/L (98-107) H 10/18/20 04:03 Carbon Dioxide 7 mmol/L (22-30) L* 10/18/20 04:03 Anion Gap 20 mmol/L 10/18/20 04:03 BUN 54 mg/dL (9-20) H 10/18/20 04:03 Creatinine 2.8 mg/dL (0.8-1.3) H 10/18/20 04:03 Estimated GFR 27 ml/min 10/18/20 04:03 BUN/Creatinine Ratio 19 % 10/18/20 04:03 Glucose 97 mg/dL (75-100) 10/18/20 04:03 Calcium 7.9 mg/dL (8.4-10.2) L 10/18/20 04:03 Total Bilirubin 0.20 mg/dL (0.1-1.2) 10/18/20 04:03 Direct Bilirubin < 0.2 mg/dL (0-0.2) 10/18/20 04:03 Indirect Bilirubin 0.0 mg/dL 10/18/20 04:03 AST 17 units/L (5-40) 10/18/20 04:03 ALT 18 units/L (7-56) 10/18/20 04:03 Alkaline Phosphatase 54 units/L (35-129) 10/18/20 04:03 Total Protein 6.2 g/dL (6.3-8.2) L 10/18/20 04:03 Albumin 3.0 g/dL (3.9-5) L 10/18/20 04:03 Albumin/Globulin Ratio 0.9 % 10/18/20 04:03 Lipase 20 units/L (13-60) 10/18/20 04:03 - Imaging and Cardiology CT scan - abdomen: report reviewed Assessment and Plan VTE prophylaxis?: Chemical Plan of care discussed with patient/family: Yes - Patient Problems (1) Acute on chronic renal failure Current Visit: Yes Status: Acute Plan to address problem: Admit the patient to the medical telemetry. Half-normal saline at the rate of 100 cc/h. Avoid nephrotoxic drug. Renally dose medication repeat BMP in the morning nephrology consult. (2) Acute abdominal pain Current Visit: Yes Status: Acute Plan to address problem: N.p.o. half-normal saline at the rate of 100 cc/h. Pepcid 20 mg IV every 12 hours. Zofran 4 mg IV every 6 hours as needed. We will monitor the patient closely. If needed will consult GI (3) Nausea Current Visit: Yes Status: Acute Plan to address problem: N.p.o. half-normal saline at the rate of 100 cc/h. Pepcid 20 mg IV every 12 hours. Zofran 4 mg IV every 6 hours as needed. (4) Diabetes Current Visit: No Status: Acute Plan to address problem: NPO. Half-normal saline at the rate of 100 cc/h. We will put the patient on Humalog sliding scale moderate dose coverage and Lantus 20 units subcu nightly. We will monitor the glucose closely (5) Hypertension Current Visit: No Status: Chronic Plan to address problem: Amlodipine 10 mg p.o. daily. Atenolol 100 milligrams p.o. twice daily. We will monitor the blood pressure closely (6) DVT prophylaxis Current Visit: No Status: Acute Plan to address problem: Heparin 5000 units subcu every 8 hours for DVT prophylaxis. Pepcid 20 mg IV every 12 hours for GI prophylaxis. Patient is a full code
[2020-10-18] MEDS ORDERED: SODIUM CHLORIDE 0.45% 1000 ML 1,000 ML IV SCH (06:00)
[2020-10-18] MEDS ORDERED: D5W/0.45% NACL 1,000 ML IV SCH (06:00)
[2020-10-18] MEDS: HYDROmorphone 1 MG/1 ML INJ IV PRN ×2 (06:42→23:52)
--- NOTE | 2020-10-18 08:03 | Consultation ---
History of Present Illness - Reason for Consult Consult date: 10/18/20 acute renal failure, chronic renal failure - History of Present Illness 70 years old male was brought to the emergency room because of abdominal pain and nausea. Patient stated that he had surgery and chemotherapy for colon cancer. In the emergency room patient is found to have BUN of 54 and creatinine 2.[address] scan of the abdomen shows no definite inflammatory process. Postoperative finding of small and large bowel mid small bowel dilatation which could represent enteritis, ileus or early obstruction. renal consulkt was requested for reenal failure management. Past History Past Medical History: diabetes, hypertension, other (Colon cancer) Medications and Allergies Allergies Allergy/AdvReac Type Severity Reaction Status Date / Time IV DYE AdvReac Severe Shortness Uncoded 09/24/20 12:09 of Breath Home Medications Medication Instructions Recorded Confirmed Last Taken Type Doxazosin [Cardura] 4 mg PO QPM 02/06/13 11/06/19 06/03/19 20:00 History Insulin Glargine,Hum.rec.anlog 20 units SQ QPM 09/04/13 11/06/19 06/02/19 20:00 History [Lantus Solostar] Omeprazole 1 cap PO DAILY 09/04/13 11/06/19 11/05/19 History Amlodipine Besylate/Benazepril 1 tab PO DAILY 06/11/14 02/04/17 02/03/17 History [amLODIPine-Benazepril 10/20 mg] Insulin Glargine,Hum.rec.anlog 20 units SUB-Q HS 06/11/14 02/04/17 02/03/17 History [Lantus Solostar] Omeprazole 20 mg PO DAILY 06/11/14 02/04/17 02/03/17 History atenoloL [Atenolol] 100 mg PO BID 06/11/14 02/04/17 02/03/17 History glyBURIDE/METFORMIN HCL 10 tab PO DAILY 06/11/14 02/04/17 02/03/17 History [Glyburide-Metformin 5-500 mg] Doxazosin [Cardura] 2 mg PO BID 02/04/17 02/04/17 02/03/17 History Insulin Glargine [Lantus] 20 unit SUB-Q QHS 02/04/17 02/04/1702/03/17 History Simethicone [Gas Relief] 80 mg PO ACHS 02/04/17 02/04/17 02/03/17 History Warfarin [Coumadin] 7.5 mg PO QDAY 02/04/17 02/04/17 02/02/17 History metFORMIN [Glucophage] 500 mg PO BID 02/04/17 02/04/17 02/03/17 History oxyCODONE [Roxicodone] 5 mg PO Q4HR PRN 02/04/17 02/04/17 02/03/17 History Oxycodone HCl [oxyCODONE] 20 mg PO BID PRN 11/06/19 11/06/19 Unknown History Loperamide [Imodium] 2 mg PO Q2H PRN #20 capsule 11/09/19 Unknown Rx amLODIPine 10 mg PO DAILY #30 tablet 11/09/19 Unknown Rx hydrALAZINE [Apresoline TAB] 50 mg PO TID #60 tab 11/09/19 Unknown Rx Active Meds: Active Medications Acetaminophen (Acetaminophen 325 Mg Tab) 650 mg PO Q4H PRN PRN Reason: Pain MILD(1-3)/Fever >100.5/CHAUDHARY Albuterol (Albuterol 2.5 Mg/3 Ml Nebu) 2.5 mg IH Q4HRT PRN PRN Reason: Shortness Of Breath Albuterol/Ipratropium (Ipratropium/Albuterol Sulfate 3 Ml Ampul.Neb) 1 ampul IH Q6HRT [facility] Amlodipine Besylate (Amlodipine 10 Mg Tab) 10 mg PO DAILY PATRICK Atenolol (Atenolol 50 Mg Tab) 100 mg PO BID PATRICK Dextrose (Dextrose 50% In Water (25gm) 50 Ml Syringe) 50 ml IV Q30MIN PRN; Protocol PRN Reason: Hypoglycemia Doxazosin Mesylate (Doxazosin 1 Mg Tab) 2 mg PO BID PATRICK Hydralazine HCl (Hydralazine 100 Mg Tab) 50 mg PO TID PATRICK Hydromorphone HCl (Hydromorphone 1 Mg/1 Ml Inj) 0.5 mg IV Q3H PRN PRN Reason: Pain , Severe (7-10) Last Admin: 10/18/20 06:42 Dose: 0.5 mg Documented by: Sodium Chloride (Nacl 0.45% 1000 Ml) 1,000 mls @ 100 mls/hr IV DIRECT PATRICK Insulin Glargine (Insulin Glargine 100 Units/Ml) 20 units SUB-Q QHS [facility] Insulin Human Lispro (Insulin Lispro 100 Unit/Ml) 0 unit SUB-Q Q6HR [facility]; Protocol Lisinopril (Lisinopril 20 Mg Tab) 20 mg PO QDAY [facility] Ondansetron HCl (Ondansetron 4 Mg/2 Ml Inj) 4 mg IV Q8H PRN PRN Reason: Nausea And Vomiting Oxycodone/Acetaminophen (Oxycodone /Acetaminophen 5-325mg Tab) 1 tab PO Q6H PRN PRN Reason: Pain, Moderate (4-6) Pantoprazole Sodium (Pantoprazole 20 Mg Tab) 20 mg PO QDAY PATRICK Simethicone (Simethicone 80 Mg Chew Tab) 80 mg PO ACHS PATRICK Sodium Chloride (Sodium Chloride 0.9% 10 Ml Flush Syringe) 10 ml IV BID [facility] Sodium Chloride (Sodium Chloride 0.9% 10 Ml Flush Syringe) 10 ml IV PRN PRN PRN Reason: LINE FLUSH Warfarin Sodium (Warfarin 7.5 Mg Tab) 7.5 mg PO QDAY@1700 [facility]; Protocol Review of Systems All systems: negative (abdominal pain) Exam - Vital Signs Vital signs: Vital Signs Pulse Ox 100 10/18/20 03:28 - General Appearance General appearance: well-developed, appears stated age EENT: ATNC, PERRL, mucous membranes dry Neck: Present: neck supple Respiratory: Clear to Ascultation Heart: tachycardia, S1S2 Gastrointestinal: Present: normoactive bowel sounds. Absent: distended, masses, guarding Integumentary: no rash, warm and dry Neurologic: no focal deficit, no asterixis Musculoskeletal: Present: other (no ededma in BLE) Psychiatric: cooperative Results - Lab Results 10/18/20 04:03 10/18/20 04:03 Most recent lab results Calcium 7.9 mg/dL (8.4-10.2) L 10/18/20 04:03 Assessment and Plan (1) Acute on chronic renal failure (2) Acute abdominal pain (3) AG metabolic acidosis (4) Diabetes (5) Hypertension baseline Cr ~2, worsening kidney funciton coudl be secondary to prerenal az ortmeia vs. 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
[2020-10-18] MEDS ORDERED: SODIUM BICARBONATE 150 MEQ in DEXTROSE 5% IN WATER 1,000 ML IV SCH (09:00)
[2020-10-18 09:58] LABS: Bacteria,Urine 2+ /HPF (Negative); Bilirubin,Urine NEG (Negative); Blood,Urine NEG (Negative); Color,Urine Yellow (Yellow); Protein,Urine <15 mg/dL mg/dL (Negative); Urobilinogen,Urine < 2.0 mg/dL (<2.0)
[2020-10-18] MEDS ORDERED: FAMOTIDINE 20 MG/2 ML INJ IV SCH (10:00)
[2020-10-18] MEDS ORDERED: [UNRECOGNIZED DRUG - OTHER] PO SCH (10:00)
[2020-10-18] MEDS ORDERED: GLYBURIDE PO SCH (10:00)
[2020-10-18] MEDS ORDERED: METFORMIN HCL PO SCH (10:00)
[2020-10-18] MEDS ORDERED: amLODIPine 10 MG TAB PO SCH (10:00)
[2020-10-18] MEDS ORDERED: AMLODIPINE BESYLATE PO SCH (10:00)
[2020-10-18] MEDS ORDERED: BENAZEPRIL PO SCH (10:00)
[2020-10-18] MEDS ORDERED: ATENOLOL 100 MG PO SCH (10:00)
[2020-10-18] MEDS ORDERED: LISINOPRIL 20 MG TAB PO SCH (10:00)
[2020-10-18] MEDS ORDERED: NON-FORMULARY EACH (Omeprazole [Omeprazole] 20 MG Capsule.Dr) PO SCH (10:00)
[2020-10-18] MEDS ORDERED: [UNRECOGNIZED DRUG - OTHER] PO SCH (10:00)
[2020-10-18] MEDS: hydrALAZINE 100 MG TAB PO SCH ×3 (10:45→21:50)
[2020-10-18] MEDS: atenoloL 50 MG TAB PO SCH ×2 (10:46→21:58)
[2020-10-18] MEDS: SIMETHICONE 80 MG CHEW TAB PO SCH ×4 (10:46→21:58)
[2020-10-18] MEDS: amLODIPine 10 MG TAB PO SCH (10:47)
[2020-10-18] MEDS: DOXAZOSIN 1 MG TAB PO SCH ×2 (10:48→21:56)
[2020-10-18] MEDS: PANTOPRAZOLE 20 MG TAB PO SCH (10:51)
[2020-10-18 11:48] LABS: Creatinine,Urine 44.8 mg/dL (0.1-20.0)
[2020-10-18 12:13] LABS: Creatinine,Urine 43.7 mg/dL (0.1-20.0); Protein/Creatinine Ratio,Urine 0.66
--- NOTE | 2020-10-18 12:26 | Progress Note ---
Hospitalist Physical - Constitutional Vitals: Temp Pulse Resp BP Pulse Ox 95.8 F L 50 L 12 120/53 100 10/18/20 09:40 10/18/20 10:48 10/18/20 10:30 10/18/20 10:48 10/18/20 10:30 General appearance: Present: no acute distress, well-nourished Results - Labs CBC & Chem 7: 10/18/20 04:03 10/18/20 04:03 Labs: Laboratory Last Values WBC 9.6 K/mm3 (4.5-11.0) 10/18/20 04:03 RBC 3.77 M/mm3 (3.65-5.03) 10/18/20 04:03 Hgb 11.8 gm/dl (11.8-15.2) 10/18/20 04:03 Hct 39.2 % (35.5-45.6) 10/18/20 04:03 MCV 104 fl (84-94) H 10/18/20 04:03 MCH 31 pg (28-32) 10/18/20 04:03 MCHC 30 % (32-34) L 10/18/20 04:03 RDW 19.8 % (13.2-15.2) H 10/18/20 04:03 Plt Count 150 K/mm3 (140-440) 10/18/20 04:03 Lymph % (Auto) Reroller Hand 10/18/20 04:03 [place] % (Auto) Reroller Hand 10/18/20 04:03 Eos % (Auto) Reroller Hand 10/18/20 04:03 Baso % (Auto) Reroller Hand 10/18/20 04:03 Lymph # (Auto) Reroller Hand 10/18/20 04:03 [place] # (Auto) Reroller Hand 10/18/20 04:03 Eos # (Auto) Reroller Hand 10/18/20 04:03 Baso # (Auto) Reroller Hand 10/18/20 04:03 Seg Neutrophils % Reroller Hand 10/18/20 04:03 Seg Neutrophils # Reroller Hand 10/18/20 04:03 Sodium 141 mmol/L (137-145) 10/18/20 04:03 Potassium 4.4 mmol/L (3.6-5.0) 10/18/20 04:03 Chloride 118.8 mmol/L (98-107) H 10/18/20 04:03 Carbon Dioxide 7 mmol/L (22-30) L* 10/18/20 04:03 Anion Gap 20 mmol/L 10/18/20 04:03 BUN 54 mg/dL (9-20) H 10/18/20 04:03 Creatinine 2.8 mg/dL (0.8-1.3) H 10/18/20 04:03 Estimated GFR 27 ml/min 10/18/20 04:03 BUN/Creatinine Ratio 19 % 10/18/20 04:03 Glucose 97 mg/dL (75-100) 10/18/20 04:03 Calcium 7.9 mg/dL (8.4-10.2) L 10/18/20 04:03 Total Bilirubin 0.20 mg/dL (0.1-1.2) 10/18/20 04:03 Direct Bilirubin < 0.2 mg/dL (0-0.2) 10/18/20 04:03 Indirect Bilirubin 0.0 mg/dL 10/18/20 04:03 AST 17 units/L (5-40) 10/18/20 04:03 ALT 18 units/L (7-56) 10/18/20 04:03 Alkaline Phosphatase 54 units/L (35-129) 10/18/20 04:03 Total Creatine Kinase 57 units/L (55-170) 10/18/20 11:44 Total Protein 6.2 g/dL (6.3-8.2) L 10/18/20 04:03 Albumin 3.0 g/dL (3.9-5) L 10/18/20 04:03 Albumin/Globulin Ratio 0.9 % 10/18/20 04:03 Lipase 20 units/L (13-60) 10/18/20 04:03 Urine Color Yellow (Yellow) 10/18/20 07:13 Urine Turbidity Clear (Clear) 10/18/20 07:13 Urine pH 5.0 (5.0-7.0) 10/18/20 07:13 Ur Specific [place] 1.010 (1.003-1.030) 10/18/20 07:13 Urine Protein <15 mg/dl mg/dL (Negative) 10/18/20 07:13 Urine Glucose (UA) Neg mg/dL (Negative) 10/18/20 07:13 Urine Ketones Neg mg/dL (Negative) 10/18/20 07:13 Urine Blood Neg (Negative) 10/18/20 07:13 Urine Nitrite Pos (Negative) 10/18/20 07:13 Urine Bilirubin Neg (Negative) 10/18/20 07:13 Urine Urobilinogen < 2.0 mg/dL (<2.0) 10/18/20 07:13 Ur Leukocyte Esterase Tr (Negative) 10/18/20 07:13 Urine WBC (Auto) 25.0 /HPF (0.0-6.0) H 10/18/20 07:13 Urine RBC (Auto) 3.0 /HPF (0.0-6.0) 10/18/20 07:13 Urine Bacteria (Auto) 2+ /HPF (Negative) 10/18/20 07:13 Urine Creatinine 43.7 mg/dL (0.1-20.0) H 10/18/20 09:10 Urine Creatinine 44.8 mg/dL (0.1-20.0) H 10/18/20 09:10 Protein/Creatinin Ratio 0.66 10/18/20 09:10 Urine Sodium 86 mmol/L 10/18/20 09:10 Urine Total Protein 29 mg/dL (5-11.8) H 10/18/20 09:10 Active Medications - Current Medications Current Medications: Generic Name Dose Route Start Last Admin Trade Name Freq PRN Reason Stop Dose Admin Acetaminophen 650 mg 10/18/20 05:47 Acetaminophen 325 Mg Tab PO Q4H PRN Pain MILD(1-3)/Fever >100.5/CHAUDHARY Albuterol 2.5 mg 10/18/20 05:47 Albuterol 2.5 Mg/3 Ml Nebu IH Q4HRT PRN Shortness Of Breath Albuterol/Ipratropium 1 ampul 10/18/20 08:00 Ipratropium/Albuterol Sulfate 3 Ml Ampul.Neb IH Q6HRT [facility] Amlodipine Besylate 10 mg 10/18/20 10:00 10/18/20 10:47 Amlodipine 10 Mg Tab PO Not Given DAILY PATRICK Atenolol 100 mg 10/18/20 10:00 10/18/20 10:46 Atenolol 50 Mg Tab PO Not Given BID PATRICK Dextrose 50 ml 10/18/20 06:05 Dextrose 50% In Water (25gm) 50 Ml Syringe IV Q30MIN PRN Hypoglycemia Protocol Doxazosin Mesylate 2 mg 10/18/20 10:00 10/18/20 10:48 Doxazosin 1 Mg Tab PO Not Given BID [facility] Hydralazine HCl 50 mg 10/18/20 08:00 10/18/20 10:45 Hydralazine 100 Mg Tab PO Not Given TID [facility] Hydromorphone HCl 0.5 mg 10/18/20 05:47 10/18/20 06:42 Hydromorphone 1 Mg/1 Ml Inj IV 0.5 mg Q3H PRN Administration Pain , Severe (7-10) Sodium Bicarbonate 150 meq/ 1,150 mls @ 125 mls/hr 10/18/20 09:00 10/18/20 11:10 Dextrose IV 125 mls/hr DIRECT [facility] Administration Insulin Glargine 20 units 10/18/20 22:00 Insulin Glargine 100 Units/Ml SUB-Q QHS [facility] Insulin Human Lispro 0 unit 10/18/20 12:00 Insulin Lispro 100 Unit/Ml SUB-Q Q6HR [facility] Protocol Ondansetron HCl 4 mg 10/18/20 05:47 Ondansetron 4 Mg/2 Ml Inj IV Q8H PRN Nausea And Vomiting Oxycodone/Acetaminophen 1 tab 10/18/20 05:47 Oxycodone /Acetaminophen 5-325mg Tab PO Q6H PRN Pain, Moderate (4-6) Pantoprazole Sodium 20 mg 10/18/20 10:00 10/18/20 10:51 Pantoprazole 20 Mg Tab PO 20 mg QDAY PATRICK Administration Simethicone 80 mg 10/18/20 07:30 10/18/20 10:46 Simethicone 80 Mg Chew Tab PO Not Given ACHS [facility] Sodium Chloride 10 ml 10/18/20 10:00 10/18/20 10:51 Sodium Chloride 0.9% 10 Ml Flush Syringe IV 10 ml BID PATRICK Administration Sodium Chloride 10 ml 10/18/20 05:47 Sodium Chloride 0.9% 10 Ml Flush Syringe IV PRN PRN LINE FLUSH Warfarin Sodium 7.5 mg 10/18/20 17:00 Warfarin 7.5 Mg Tab PO QDAY@1700 [facility] Protocol Nutrition/Malnutrition Assess - Dietary Evaluation Nutrition/Malnutrition Findings: Nutrition Notes Start: 10/18/20 10:25 Freq: Status: Active Protocol: Document 10/18/20 10:25 (Rec: 10/18/20 10:28 [id number]) Nutrition Notes Need for Assessment generated from: MD Order Initial or Follow up Brief Note Current Diagnosis Acute Kidney Injury,CKD(stage I-IV),Diabetes,Hypertension Other Pertinent Diagnosis colon cancer, abd pain Height 5 ft 8 in Weight 78.2 kg Two Dot Body Weight (kg) 70.00 BMI 26.2 Weight Status Appropriate Subjective/Other Information MD consult for DM diet education. Pt on hold in ED. Pt with possible SBO, ilues or enteritis. Hx of chemotherapy . Pt may be at nutritional risk. GI Symptoms Nausea Is patient on ventilator? No Is Patient Ambulatory and/or Out of Bed Yes REE-([place]. Jeor-ambulatory/OOB) [ [id number] NUTR.[id number]] Calculation Used for Recommendations [place] or Additional Notes Protein: (1-1.2g/kg) 78-94g Fluid: 1 ml/kcal Nutrition Intervention Follow-Up By: 10/19/20 Additional Comments F/u: assessment and diet education needs
--- NOTE | 2020-10-18 12:30 | Event Note ---
Date: 10/18/20 Spoke to in detail patient was brought to the hospital last year he was noted to have labored breathing he has had this before in the past when he had pulmonary embolism they also noted to have bilateral lower extremity swelling which has been worsening he was started on Lasix recently by his primary care physician at the [facility]. With no improvement. The patient also has an IVC filter as revealed by the spouse and has been off anticoagulation for a few weeks. He had a recent near fatal GI bleed and was treated at [facility] we'll request records. At this time will have vascular evaluate the patient to see if the IVC filter is clogged. Nephrology is already following the patient will defer to them if patient can be restarted on IV Lasix. His creatinine appears to be baseline from last year but I do not have any current data from recent hospitalization at [facility]. I have discussed with nursing staff to update his home medication list.
[2020-10-18 14:35] LABS: INR 1.11 (0.87-1.13)
[2020-10-18] MEDS: INSULIN LISPRO 100 UNIT/ML SUB-Q SCH ×2 (15:28→18:50)
[2020-10-18] MEDS ORDERED: WARFARIN 7.5 MG TAB PO SCH (17:00)
[2020-10-18] MEDS: INSULIN GLARGINE 100 UNITS/ML SUB-Q SCH (21:47)
[2020-10-19] MEDS: INSULIN LISPRO 100 UNIT/ML SUB-Q SCH ×4 (00:55→19:40)
[2020-10-19 05:49] LABS: Basophils % (Auto) 0.4 % (0.0-1.8); Eosinophils # (Auto) 0.1 K/mm3 (0.0-0.4); Hematocrit 33.6 % (35.5-45.6); Lymphocytes % (Auto) 17.8 % (13.4-35.0); Mean Corpuscular HGB Conc 33 % (32-34); Mean Corpuscular Volume 95 fl (84-94); Monocytes # (Auto) 0.5 K/mm3 (0.0-0.8); Monocytes % (Auto) 9.3 % (0.0-7.3); Platelet Count 162 K/mm3 (140-440); Red Blood Count 3.54 M/mm3 (3.65-5.03); Red Cell Distribution Width 18.2 % (13.2-15.2)
[2020-10-19 05:53] LABS: INR 1.04 (0.87-1.13)
[2020-10-19 05:58] LABS: Calcium 7.7 mg/dL (8.4-10.2)
[2020-10-19] MEDS ORDERED: SODIUM BICARB 8.4% 50 MEQ/50 ML SYRINGE IV ONE (06:47)
--- NOTE | 2020-10-19 09:00 | Nuclear Medicine Report ---
CHEST 1 VIEW INDICATION: pulmonary embolisim. For VQ scan. COMPARISON: 03/09/2017 FINDINGS: Support devices: A right IJ [id number] has been inserted since the previous exam. The tubing of th e [id number] appears to be coiled in the lower right jugular vein. Please correlate with the image . Heart: Mild cardiomegaly. Lungs/Pleura: No acute air space or interstitial disease. No pneumothorax. Additional findings: None. IMPRESSION: Mild cardiomegaly. Lungs clear. Abnormal appearance of the right [id number] as described. NUCLEAR MEDICINE PERFUSION SCAN INDICATION: pulmonary embolisim CORRELATION: AP chest performed earlier today RADIOPHARMACEUTICAL: Perfusion: 5.5 mCi Tc-99m MAA given IV FINDINGS: Perfusion images show symmetric and uniform radiotracer distribution throughout bilateral lung zones with no evidence of unmatched segmental perfusion defects. IMPRESSION: Low probability perfusion scan for pulmonary embolism. Signer Name: Arron Bryant Jr, MD Signed: 10/19/2020 8:56 AM Workstation Name: [id number]
--- NOTE | 2020-10-19 10:07 | Vascular Lab Report ---
DUPLEX DOPPLER LOWER EXTREMITY VEINS, BILATERAL INDICATION / CLINICAL INFORMATION: History bilateral lower segment DVT, currently on anticoagulation. TECHNIQUE: Duplex doppler imaging was performed through the veins of both lower extremities using venous sarah micaela and other maneuvers. COMPARISON: Left lower extremity venous Doppler from 02/05/2017. FINDINGS: RIGHT COMMON FEMORAL VEIN: Chronic thrombus. No acute thrombus. RIGHT FEMORAL VEIN: Chronic thrombus. No acute thrombus. RIGHT POPLITEAL VEIN: Chronic thrombus. No acute thrombus. RIGHT CALF VEINS: Chronic thrombus. No acute thrombus. LEFT COMMON FEMORAL VEIN: Chronic thrombus. No acute thrombus. LEFT FEMORAL VEIN: Chronic thrombus. No acute thrombus. LEFT POPLITEAL VEIN: Chronic thrombus. No acute thrombus. LEFT CALF VEINS: Chronic thrombus. No acute thrombus. ADDITIONAL FINDINGS: None. IMPRESSION: Extensive bilateral lower extremity chronic DVT, right greater than left. Signer Name: Jg Pearson MD Signed: 10/19/2020 10:03 AM Workstation Name: [id number]
--- NOTE | 2020-10-19 10:45 | Progress Note ---
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 renally dose meds strict I&O daily weight Flakito Alvarado MD [phone] Subjective Date of service: 10/19/20 Principal diagnosis: renal failure Interval history: some SOB Objective - Vital Signs Vital signs: Vital Signs - 12hr 10/18/20 10/19/20 10/19/20 23:00 00:02 00:30 Pulse Rate 58 L 56 L Respiratory 17 16 19 Rate Blood Pressure 175/82 175/82 O2 Sat by Pulse 100 98 100 Oximetry 10/19/20 10/19/20 10/19/20 01:00 01:30 02:00 Pulse Rate 53 L 60 58 L Respiratory 13 17 21 Rate Blood Pressure 172/76 172/76 169/76 O2 Sat by Pulse 100 100 100 Oximetry 10/19/20 10/19/20 10/19/20 02:32 03:00 04:00 Pulse Rate 48 L Respiratory Rate Blood Pressure 169/76 167/107 141/59 O2 Sat by Pulse 100 100 100 Oximetry 10/19/20 05:00 Pulse Rate 49 L Respiratory Rate Blood Pressure 146/63 O2 Sat by Pulse 100 Oximetry - Lab 10/19/20 04:50 10/19/20 04:50 Most recent lab results Calcium 7.7 mg/dL (8.4-10.2) L 10/19/20 04:50 Phosphorus 5.40 mg/dL (2.5-4.5) H 10/19/20 04:50 Urine Creatinine 43.7 mg/dL (0.1-20.0) H 10/18/20 09:10 Urine Creatinine 44.8 mg/dL (0.1-20.0) H 10/18/20 09:10 Urine Sodium 86 mmol/L 10/18/20 09:10 Urine Total Protein 29 mg/dL (5-11.8) H 10/18/20 09:10 Medications & Allergies - Medications Allergies/Adverse Reactions: Allergies Sulfa (Sulfonamide Antibiotics) Allergy (Verified 10/18/20 17:45) Unknown IV DYE Adverse Reaction (Severe, Uncoded 09/24/20 12:09) Shortness of Breath Home Medications: Home Medications Medication Instructions Recorded Confirmed Last Taken Type Amlodipine Besylate/Benazepril 10 - 20 tab PO DAILY 06/11/14 10/18/20 02/03/17 History [amLODIPine-Benazepril 10/20 mg] Omeprazole 20 mg PO DAILY 06/11/14 10/18/20 02/03/17 History Doxazosin [Cardura] 2 mg PO BID 02/04/17 10/18/20 02/03/17 History Atenolol [Tenormin] 100 mg PO DAILY 10/18/20 10/18/20 Unknown History Methocarbamol 500 mg PO DAILY 10/18/20 10/18/20 Unknown History Procrit 20,000 units SC 1XW 10/18/20 10/18/20 Unknown History Active Medications: Generic Name Dose Route Start Last Admin Trade Name Freq PRN Reason Stop Dose Admin Acetaminophen 650 mg 10/18/20 05:47 Acetaminophen 325 Mg Tab PO Q4H PRN Pain MILD(1-3)/Fever >100.5/CHAUDHARY Albuterol 2.5 mg 10/18/20 05:47 Albuterol 2.5 Mg/3 Ml Nebu IH Q4HRT PRN Shortness Of Breath Albuterol/Ipratropium 1 ampul 10/18/20 08:00 Ipratropium/Albuterol Sulfate 3 Ml Ampul.Neb IH Q6HRT [facility] Amlodipine Besylate 10 mg 10/18/20 10:00 10/18/20 10:47 Amlodipine 10 Mg Tab PO Not Given DAILY [facility] Atenolol 100 mg 10/18/20 10:00 10/18/20 21:58 Atenolol 50 Mg Tab PO Not Given BID [facility] Dextrose 50 ml 10/18/20 06:05 Dextrose 50% In Water (25gm) 50 Ml Syringe IV Q30MIN PRN Hypoglycemia Protocol Doxazosin Mesylate 2 mg 10/18/20 10:00 10/18/20 21:56 Doxazosin 1 Mg Tab PO 2 mg BID PATRICK Administration Hydralazine HCl 50 mg 10/18/20 08:00 10/18/20 21:50 Hydralazine 100 Mg Tab PO 50 mg TID PATRICK Administration Hydromorphone HCl 0.5 mg 10/18/20 05:47 10/18/20 23:52 Hydromorphone 1 Mg/1 Ml Inj IV 0.5 mg Q3H PRN Administration Pain , Severe (7-10) Sodium Bicarbonate 150 meq/ 1,150 mls @ 125 mls/hr 10/18/20 09:00 10/18/20 11:10 Dextrose IV 125 mls/hr DIRECT PATRICK Administration Insulin Glargine 20 units 10/18/20 22:00 10/18/20 21:47 Insulin Glargine 100 Units/Ml SUB-Q 20 units QHS PATR[facility] Administration Insulin Human Lispro 0 unit 10/18/20 12:00 10/19/20 06:30 Insulin Lispro 100 Unit/Ml SUB-Q Not Given Q6HR [facility] Protocol Ondansetron HCl 4 mg 10/18/20 05:47 Ondansetron 4 Mg/2 Ml Inj IV Q8H PRN Nausea And Vomiting Oxycodone/Acetaminophen 1 tab 10/18/20 05:47 Oxycodone /Acetaminophen 5-325mg Tab PO Q6H PRN Pain, Moderate (4-6) Pantoprazole Sodium 20 mg 10/18/20 10:00 10/18/20 10:51 Pantoprazole 20 Mg Tab PO 20 mg QDAY PATRICK Administration Simethicone 80 mg 10/18/20 07:30 10/18/20 21:58 Simethicone 80 Mg Chew Tab PO Not Given ACHS PATRICK Sodium Chloride 10 ml 10/18/20 10:00 10/18/20 21:56 Sodium Chloride 0.9% 10 Ml Flush Syringe IV 10 ml BID PATRICK Administration Sodium Chloride 10 ml 10/18/20 05:47 Sodium Chloride 0.9% 10 Ml Flush Syringe IV PRN PRN LINE FLUSH
[2020-10-19] MEDS ORDERED: FUROSEMIDE 20 MG TAB PO SCH (13:00)
[2020-10-19] MEDS: amLODIPine 10 MG TAB PO SCH (13:03)
[2020-10-19] MEDS: hydrALAZINE 100 MG TAB PO SCH ×3 (13:04→21:57)
[2020-10-19] MEDS: PANTOPRAZOLE 20 MG TAB PO SCH (13:05)
[2020-10-19] MEDS: DOXAZOSIN 1 MG TAB PO SCH (13:07)
--- NOTE | 2020-10-19 14:18 | Progress Note ---
Assessment and Plan Assessment and plan: 70 years old male with history of colon cancer, diagnosed in 2005, diabetes and hypertension was brought to the emergency room because of abdominal pain and nausea. Patient stated that he had surgery and chemotherapy for colon cancer. Patient presented to the emergency room from a local senior living via EMS for evaluation of abdominal pain. Patient stated that his abdominal pain has been going on for few days. Patient describes his pain as diffuse, crampy in nature with no radiation. Patient denied any fever or chills. Patient is nauseated but no vomiting . No diarrhea. In the emergency room patient is found to have BUN of 54 and creatinine 2.[address] scan of the abdomen shows no definite inflammatory process. Postoperative finding of small and large bowel mid small bowel dilatation which could represent enteritis, ileus or early obstruction Spoke to in detail patient was brought to the hospital last year he was noted to have labored breathing he has had this before in the past when he had pulmonary embolism they also noted to have bilateral lower extremity swelling which has been worsening he was started on Lasix recently by his primary care physician at the senior living. With no improvement. The patient also has an IVC filter as revealed by the spouse and has been off anticoagulation for a few weeks. He had a recent near fatal GI bleed and was treated at [facility] we'll request records. At this time will have vascular evaluate the patient to see if the IVC filter is clogged. Nephrology is already following the patient will defer to them if patient can be restarted on IV Lasix. His creatinine appears to be baseline from last year but I do not have any current data from recent hospitalization at [facility]. I have discussed with nursing staff to update his home medication list. 10/19: Discussed with vascular surgeon and also with supervisor coffee. Patient still with severe metabolic acidosis. No indication for Lasix at this time. Will start patient on LR at 75 cc an hour. Ultrasound reviewed shows bilateral chronic DVTs. Again per as noted above patient had a near fatal GI bleed still awaiting records from [facility] as requested. No further abdominal pain or nausea noted. VQ scan done did not reveal any pulmonary embolism (1) Acute on chronic renal failure Current Visit: Yes Status: Acute Plan to address problem: Admit the patient to the medical telemetry. Half-normal saline at the rate of 100 cc/h. Avoid nephrotoxic drug. Renally dose medication repeat BMP in the morning nephrology consult. (2) severe metabolic acidosis a (3) Nausea Current Visit: Yes Status: Acute Plan to address problem: N.p.o. half-normal saline at the rate of 100 cc/h. Pepcid 20 mg IV every 12 hours. Zofran 4 mg IV every 6 hours as needed. (4) Diabetes Current Visit: No Status: Acute Plan to address problem: NPO. Half-normal saline at the rate of 100 cc/h. We will put the patient on Humalog sliding scale moderate dose coverage and Lantus 20 units subcu nightly. We will monitor the glucose closely (5) Hypertension Current Visit: No Status: Chronic Plan to address problem: Amlodipine 10 mg p.o. daily. Atenolol 100 milligrams p.o. twice daily. We will monitor the blood pressure closely (6) acute abdominal pain Current Visit: Yes Status: Acute Plan to address problem: N.p.o. half-normal saline at the rate of 100 cc/h. Pepcid 20 mg IV every 12 hours. Zofran 4 mg IV every 6 hours as needed. We will monitor the patient closely. If needed will consult GI (7) recent GI bleed (8) chronic CKD (9) DVT prophylaxis Current Visit: No Status: Acute Plan to address problem: Heparin 5000 units subcu every 8 hours for DVT prophylaxis. Pepcid 20 mg IV every 12 hours for GI prophylaxis. Patient is a full code History Interval history: Patient seen and examined this morning in no acute distress resting comfortably. Hospitalist Physical - Physical exam Narrative exam: - Constitutional General appearance: Present: no acute distress, well-nourished - EENT Eyes: Present: PERRL ENT: hearing intact, clear oral mucosa - Neck Neck: Present: supple, normal ROM - Respiratory Respiratory effort: normal Respiratory: bilateral: CTA - Cardiovascular Heart Sounds: Present: S1 & S2. Absent: rub, click - Extremities Extremities: pulses symmetrical, bilateral pitting edema Peripheral Pulses: within normal limits - Abdominal General gastrointestinal: Present: soft, non-tender, non-distended, normal bowel sounds Male genitourinary: Present: normal - Integumentary Integumentary: Present: clear, warm - Musculoskeletal Musculoskeletal: gait not tested, strength equal bilaterally - Psychiatric Psychiatric: appropriate mood/affect, intact judgment & insight - Neurologic Neurologic: CNII-XII intact, moves all extremities - Constitutional Vitals: Temp Pulse Resp BP Pulse Ox 97.5 F L 49 L 21 146/63 100 10/18/20 17:35 10/19/20 05:00 10/19/20 02:00 10/19/20 05:00 10/19/20 05:00 General appearance: Present: no acute distress, well-nourished Results - Labs CBC & Chem 7: 10/19/20 04:50 10/19/20 04:50 Labs: Laboratory Last Values WBC 5.6 K/mm3 (4.5-11.0) 10/19/20 04:50 RBC 3.54 M/mm3 (3.65-5.03) L 10/19/20 04:50 Hgb 11.0 gm/dl (11.8-15.2) L 10/19/20 04:50 Hct 33.6 % (35.5-45.6) L 10/19/20 04:50 MCV 95 fl (84-94) H 10/19/20 04:50 MCH 31 pg (28-32) 10/19/20 04:50 MCHC 33 % (32-34) 10/19/20 04:50 RDW 18.2 % (13.2-15.2) H 10/19/20 04:50 Plt Count 162 K/mm3 (140-440) 10/19/20 04:50 Lymph % (Auto) 17.8 % (13.4-35.0) 10/19/20 04:50 [place] % (Auto) 9.3 % (0.0-7.3) H 10/19/20 04:50 Eos % (Auto) 2.0 % (0.0-4.3) 10/19/20 04:50 Baso % (Auto) 0.4 % (0.0-1.8) 10/19/20 04:50 Lymph # (Auto) 1.0 K/mm3 (1.2-5.4) L 10/19/20 04:50 [place] # (Auto) 0.5 K/mm3 (0.0-0.8) 10/19/20 04:50 Eos # (Auto) 0.1 K/mm3 (0.0-0.4) 10/19/20 04:50 Baso # (Auto) 0.0 K/mm3 (0.0-0.1) 10/19/20 04:50 Seg Neutrophils % 70.5 % (40.0-70.0) H 10/19/20 04:50 Seg Neutrophils # 3.9 K/mm3 (1.8-7.7) 10/19/20 04:50 PT 14.1 Sec. (12.2-14.9) 10/19/20 04:50 INR 1.04 (0.87-1.13) 10/19/20 04:50 D-Dimer 6325.00 ng/mlDDU (0-234) H 10/18/20 13:41 ABG pH 7.226 (7.320-7.450) L 10/19/20 13:51 POC ABG pCO2 23.9 mmHg (32.0-48.0) L 10/19/20 13:51 POC ABG pO2 114.7 mmHg (83-108) H 10/19/20 13:51 POC ABG HCO3 9.7 10/19/20 13:51 ABG O2 Saturation 98.0 (0-100) 10/19/20 13:51 POC ABG Base Excess -16.2 10/19/20 13:51 ABG Hemoglobin 11.6 (12.0-17.5) L 10/19/20 13:51 ABG Oxyhemoglobin 97.3 (94-98) 10/19/20 13:51 ABG Methemoglobin 0.3 (0.0-1.5) 10/19/20 13:51 ABG Sodium 142.8 mmol/L (136.0-145.0) 10/19/20 13:51 ABG Potassium 3.5 mmol/L (3.40-4.50) 10/19/20 13:51 ABG Chloride 120.0 mmol/L (98-107) H 10/19/20 13:51 ABG Glucose 129 mg/dL (65-95) H 10/19/20 13:51 Carboxyhemoglobin 0.4 (0.5-1.5) L 10/19/20 13:51 FiO2 % 21.0 10/19/20 13:51 Sodium 144 mmol/L (137-145) 10/19/20 04:50 Potassium 3.5 mmol/L (3.6-5.0) L D 10/19/20 04:50 Chloride 118.0 mmol/L (98-107) H 10/19/20 04:50 Carbon Dioxide 12 mmol/L (22-30) L 10/19/20 04:50 Anion Gap 18 mmol/L 10/19/20 04:50 BUN 54 mg/dL (9-20) H 10/19/20 04:50 Creatinine 2.6 mg/dL (0.8-1.3) H 10/19/20 04:50 Estimated GFR 30 ml/min 10/19/20 04:50 BUN/Creatinine Ratio 21 % 10/19/20 04:50 Glucose 92 mg/dL (75-100) 10/19/20 04:50 POC Glucose 93 mg/dL (70-105) 10/19/20 04:53 Lactic Acid 0.90 mmol/L (0.7-2.0) 10/18/20 13:41 Calcium 7.7 mg/dL (8.4-10.2) L 10/19/20 04:50 Phosphorus 5.40 mg/dL (2.5-4.5) H 10/19/20 04:50 Total Bilirubin 0.20 mg/dL (0.1-1.2) 10/18/20 04:03 Direct Bilirubin < 0.2 mg/dL (0-0.2) 10/18/20 04:03 Indirect Bilirubin 0.0 mg/dL 10/18/20 04:03 AST 17 units/L (5-40) 10/18/20 04:03 ALT 18 units/L (7-56) 10/18/20 04:03 Alkaline Phosphatase 54 units/L (35-129) 10/18/20 04:03 Total Creatine Kinase 57 units/L (55-170) 10/18/20 11:44 Total Protein 6.2 g/dL (6.3-8.2) L 10/18/20 04:03 Albumin 3.0 g/dL (3.9-5) L 10/18/20 04:03 Albumin/Globulin Ratio 0.9 % 10/18/20 04:03 Lipase 20 units/L (13-60) 10/18/20 04:03 Arterial Blood Glucose 129 mg/dL (65-95) H 10/19/20 13:51 Urine Color Yellow (Yellow) 10/18/20 07:13 Urine Turbidity Clear (Clear) 10/18/20 07:13 Urine pH 5.0 (5.0-7.0) 10/18/20 07:13 Ur Specific [place] 1.010 (1.003-1.030) 10/18/20 07:13 Urine Protein <15 mg/dl mg/dL (Negative) 10/18/20 07:13 Urine Glucose (UA) Neg mg/dL (Negative) 10/18/20 07:13 Urine Ketones Neg mg/dL (Negative) 10/18/20 07:13 Urine Blood Neg (Negative) 10/18/20 07:13 Urine Nitrite Pos (Negative) 10/18/20 07:13 Urine Bilirubin Neg (Negative) 10/18/20 07:13 Urine Urobilinogen < 2.0 mg/dL (<2.0) 10/18/20 07:13 Ur Leukocyte Esterase Tr (Negative) 10/18/20 07:13 Urine WBC (Auto) 25.0 /HPF (0.0-6.0) H 10/18/20 07:13 Urine RBC (Auto) 3.0 /HPF (0.0-6.0) 10/18/20 07:13 Urine Bacteria (Auto) 2+ /HPF (Negative) 10/18/20 07:13 Urine Creatinine 43.7 mg/dL (0.1-20.0) H 10/18/20 09:10 Urine Creatinine 44.8 mg/dL (0.1-20.0) H 10/18/20 09:10 Protein/Creatinin Ratio 0.66 10/18/20 09:10 Urine Sodium 86 mmol/L 10/18/20 09:10 Urine Total Protein 29 mg/dL (5-11.8) H 10/18/20 09:10 Microbiology: Microbiology 10/18/20 07:13 Urine,Clean Catch Urine Culture - Preliminary 10/18/20 11:44 Peripheral/Venous Blood Culture - Preliminary Culture in Progress 10/18/20 11:44 Peripheral/Venous Blood Culture - Preliminary Culture in Progress Active Medications - Current Medications Current Medications: Generic Name Dose Route Start Last Admin Trade Name Freq PRN Reason Stop Dose Admin Acetaminophen 650 mg 10/18/20 05:47 Acetaminophen 325 Mg Tab PO Q4H PRN Pain MILD(1-3)/Fever >100.5/CHAUDHARY Albuterol 2.5 mg 10/18/20 05:47 Albuterol 2.5 Mg/3 Ml Nebu IH Q4HRT PRN Shortness Of Breath Albuterol/Ipratropium 1 ampul 10/18/20 08:00 Ipratropium/Albuterol Sulfate 3 Ml Ampul.Neb IH Q6HRT [facility] Amlodipine Besylate 10 mg 10/18/20 10:00 10/19/20 13:03 Amlodipine 10 Mg Tab PO 10 mg DAILY [facility] Administration Atenolol 100 mg 10/18/20 10:00 10/18/20 21:58 Atenolol 50 Mg Tab PO Not Given BID [facility] Citric Acid/Sodium Citrate 30 ml 10/19/20 14:00 Bicitra Oral Liqd 30ml PO QID [facility] Dextrose 50 ml 10/18/20 06:05 Dextrose 50% In Water (25gm) 50 Ml Syringe IV Q30MIN PRN Hypoglycemia Protocol Doxazosin Mesylate 2 mg 10/18/20 10:00 10/19/20 13:07 Doxazosin 1 Mg Tab PO 2 mg BID [facility] Administration Furosemide 20 mg 10/19/20 13:00 Furosemide 20 Mg Tab PO QDAY [facility] Hydralazine HCl 50 mg 10/18/20 08:00 10/19/20 13:04 Hydralazine 100 Mg Tab PO 50 mg TID [facility] Administration Hydromorphone HCl 0.5 mg 10/18/20 05:47 10/18/20 23:52 Hydromorphone 1 Mg/1 Ml Inj IV 0.5 mg Q3H PRN Administration Pain , Severe (7-10) Insulin Glargine 20 units 10/18/20 22:00 10/18/20 21:47 Insulin Glargine 100 Units/Ml SUB-Q 20 units QHS [facility] Administration Insulin Human Lispro 0 unit 10/18/20 12:00 10/19/20 06:30 Insulin Lispro 100 Unit/Ml SUB-Q Not Given Q6HR [facility] Protocol Ondansetron HCl 4 mg 10/18/20 05:47 Ondansetron 4 Mg/2 Ml Inj IV Q8H PRN Nausea And Vomiting Oxycodone/Acetaminophen 1 tab 10/18/20 05:47 Oxycodone /Acetaminophen 5-325mg Tab PO Q6H PRN Pain, Moderate (4-6) Pantoprazole Sodium 20 mg 10/18/20 10:00 10/19/20 13:05 Pantoprazole 20 Mg Tab PO 20 mg QDAY [facility] Administration Simethicone 80 mg 10/18/20 07:30 10/18/20 21:58 Simethicone 80 Mg Chew Tab PO Not Given ACHS [facility] Sodium Chloride 10 ml 10/18/20 10:00 10/18/20 21:56 Sodium Chloride 0.9% 10 Ml Flush Syringe IV 10 ml BID [facility] Administration Sodium Chloride 10 ml 10/18/20 05:47 Sodium Chloride 0.9% 10 Ml Flush Syringe IV PRN PRN LINE FLUSH Nutrition/Malnutrition Assess - Dietary Evaluation Nutrition/Malnutrition Findings: Nutrition Notes Start: 10/18/20 10:25 Freq: Status: Active Protocol: Document 10/18/20 10:25 (Rec: 10/18/20 10:28 [email or web address]) Nutrition Notes Need for Assessment generated from: MD Order Initial or Follow up Brief Note Current Diagnosis Acute Kidney Injury,CKD(stage I-IV),Diabetes,Hypertension Other Pertinent Diagnosis colon cancer, abd pain Height 5 ft 8 in Weight 78.2 kg [place] Body Weight (kg) 70.00 BMI 26.2 Weight Status Appropriate Subjective/Other Information MD consult for DM diet education. Pt on hold in ED. Pt with possible SBO, ilues or enteritis. Hx of chemotherapy . Pt may be at nutritional risk. GI Symptoms Nausea Is patient on ventilator? No Is Patient Ambulatory and/or Out of Bed Yes REE-([place]-St. Jeor-ambulatory/OOB) [ 1964.950 [id number]] Calculation Used for Recommendations [place] Jeor Additional Notes Protein: (1-1.2g/kg) 78-94g Fluid: 1 ml/kcal Nutrition Intervention Follow-Up By: 10/20/20 Additional Comments F/u: assessment and diet education needs
[2020-10-19] MEDS: SIMETHICONE 80 MG CHEW TAB PO SCH ×3 (14:24→21:57)
[2020-10-19] MEDS: atenoloL 50 MG TAB PO SCH ×2 (14:24→21:57)
[2020-10-19] MEDS: BICITRA ORAL LIQD 30ML PO SCH ×2 (14:24→20:10)
[2020-10-19] MEDS: IPRATROPIUM/ALBUTEROL SULFATE 3 ML AMPUL.NEB IH SCH ×2 (14:30→21:50)
--- NOTE | 2020-10-19 18:11 | Event Note ---
Date: 10/19/20 70-year-old male known to our service with colon cancer and multiple prior acute GI bleeds who has intermittently been on anticoagulation for thrombotic events. He presents with DVT and swelling of the lower extremities. Patient has indwelling IVC filter. We will see patient tomorrow. Unfortunately, given near fatal GI bleeding and inability to tolerate anticoagulation (due to near fatal GI bleeding), I am not sure what we will be able to offer him. Endovascular treatment options requires, at minimum, patient can tolerate anticoagulation. Discussed this with Dr. Craig.
[2020-10-19] MEDS: LACTATED RINGERS 1,000 ML IV SCH (19:39)
[2020-10-20] MEDS ORDERED: traZODone 50 MG TAB PO ONE (00:49)
[2020-10-20] MEDS: BICITRA ORAL LIQD 30ML PO SCH ×6 (01:21→21:58)
[2020-10-20] MEDS: DOXAZOSIN 1 MG TAB PO SCH ×3 (01:21→21:52)
[2020-10-20] MEDS: INSULIN LISPRO 100 UNIT/ML SUB-Q SCH ×4 (01:22→18:01)
[2020-10-20] MEDS: INSULIN GLARGINE 100 UNITS/ML SUB-Q SCH ×2 (01:22→21:59)
[2020-10-20] MEDS ORDERED: hydrALAZINE 20 MG/1 ML INJ IV ONE (06:15)
[2020-10-20] MEDS: IPRATROPIUM/ALBUTEROL SULFATE 3 ML AMPUL.NEB IH SCH ×4 (07:43→22:03)
--- NOTE | 2020-10-20 07:54 | Progress Note ---
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 renally dose meds strict I&O daily weight Flakito Alvarado MD [phone] Subjective Date of service: 10/20/20 Principal diagnosis: renal failure Interval history: no acute distress Objective - Vital Signs Vital signs: Vital Signs - 12hr 10/19/20 10/19/20 10/19/20 20:00 20:10 20:41 Temperature 98.0 F Pulse Rate 63 64 67 Respiratory 13 11 L 18 Rate Blood Pressure 172/81 172/81 171/78 O2 Sat by Pulse 100 100 100 Oximetry 10/19/20 10/20/20 10/20/20 20:45 01:05 01:19 Temperature 98.1 F Pulse Rate 68 Respiratory 18 Rate Blood Pressure 134/66 O2 Sat by Pulse 100 98 100 Oximetry 10/20/20 10/20/20 10/20/20 06:03 06:04 06:32 Temperature 97.7 F Pulse Rate 68 66 69 Respiratory 18 18 Rate Blood Pressure 173/90 164/76 O2 Sat by Pulse 92 100 100 Oximetry - General Appearance General appearance: well-developed, well-nourished, cachectic EENT: ATNC, PERRL, mucous membranes moist Neck: no JVD, no carotid bruit Respiratory: Present: Clear to Ascultation. Absent: Rales, Ronchi Cardiology: regular, S1S2 Gastrointestinal: normoactive bowel sounds, no absent bowel sounds, no tenderness, no distended Integumentary: no rash, warm and dry Neurologic: no focal deficit, no asterixis Musculoskeletal: other (edema in BLE) Psychiatric: cooperative - Lab 10/20/20 06:56 10/19/20 04:50 Most recent lab results ABG pH 7.226 (7.320-7.450) L 10/19/20 13:51 ABG O2 Saturation 98.0 (0-100) 10/19/20 13:51 Calcium 7.7 mg/dL (8.4-10.2) L 10/19/20 04:50 Phosphorus 5.40 mg/dL (2.5-4.5) H 10/19/20 04:50 Urine Creatinine 43.7 mg/dL (0.1-20.0) H 10/18/20 09:10 Urine Creatinine 44.8 mg/dL (0.1-20.0) H 10/18/20 09:10 Urine Sodium 86 mmol/L 10/18/20 09:10 Urine Total Protein 29 mg/dL (5-11.8) H 10/18/20 09:10 Medications & Allergies - Medications Allergies/Adverse Reactions: Allergies Sulfa (Sulfonamide Antibiotics) Allergy (Verified 10/18/20 17:45) Unknown IV DYE Adverse Reaction (Severe, Uncoded 09/24/20 12:09) Shortness of Breath Home Medications: Home Medications Medication Instructions Recorded Confirmed Last Taken Type Amlodipine Besylate/Benazepril 10 - 20 tab PO DAILY 06/11/14 10/18/20 02/03/17 History [amLODIPine-Benazepril 10/20 mg] Omeprazole 20 mg PO DAILY 06/11/14 10/18/20 02/03/17 History Doxazosin [Cardura] 2 mg PO BID 02/04/17 10/18/20 02/03/17 History Atenolol [Tenormin] 100 mg PO DAILY 10/18/20 10/18/20 Unknown History Methocarbamol 500 mg PO DAILY 10/18/20 10/18/20 Unknown History Procrit 20,000 units SC 1XW 10/18/20 10/18/20 Unknown History Active Medications: Generic Name Dose Route Start Last Admin Trade Name Freq PRN Reason Stop Dose Admin Acetaminophen 650 mg 10/18/20 05:47 Acetaminophen 325 Mg Tab PO Q4H PRN Pain MILD(1-3)/Fever >100.5/CHAUDHARY Albuterol 2.5 mg 10/18/20 05:47 Albuterol 2.5 Mg/3 Ml Nebu IH Q4HRT PRN Shortness Of Breath Albuterol/Ipratropium 1 ampul 10/20/20 08:00 Ipratropium/Albuterol Sulfate 3 Ml Ampul.Neb IH TIDRT [facility] Amlodipine Besylate 10 mg 10/18/20 10:00 10/19/20 13:03 Amlodipine 10 Mg Tab PO 10 mg DAILY [facility] Administration Atenolol 100 mg 10/18/20 10:00 10/19/20 21:57 Atenolol 50 Mg Tab PO 100 mg BID [facility] Administration Citric Acid/Sodium Citrate 30 ml 10/19/20 14:00 10/20/20 01:21 Bicitra Oral Liqd 30ml PO 30 ml QID [facility] Administration Dextrose 50 ml 10/18/20 06:05 Dextrose 50% In Water (25gm) 50 Ml Syringe IV Q30MIN PRN Hypoglycemia Protocol Doxazosin Mesylate 2 mg 10/18/20 10:00 10/20/20 01:21 Doxazosin 1 Mg Tab PO 2 mg BID [facility] Administration Hydralazine HCl 50 mg 10/18/20 08:00 10/19/20 21:57 Hydralazine 100 Mg Tab PO 50 mg TID [facility] Administration Hydromorphone HCl 0.5 mg 10/18/20 05:47 10/18/20 23:52 Hydromorphone 1 Mg/1 Ml Inj IV 0.5 mg Q3H PRN Administration Pain , Severe (7-10) Lactated Ringer's 1,000 mls @ 75 mls/hr 10/19/20 14:30 10/19/20 19:39 Lactated Ringers IV 75 mls/hr DIRECT [facility] Administration Insulin Glargine 20 units 10/18/20 22:00 10/20/20 01:22 Insulin Glargine 100 Units/Ml SUB-Q Not Given QHS [facility] Insulin Human Lispro 0 unit 10/18/20 12:00 10/20/20 06:34 Insulin Lispro 100 Unit/Ml SUB-Q Not Given Q6HR [facility] Protocol Ondansetron HCl 4 mg 10/18/20 05:47 Ondansetron 4 Mg/2 Ml Inj IV Q8H PRN Nausea And Vomiting Oxycodone/Acetaminophen 1 tab 10/18/20 05:47 Oxycodone /Acetaminophen 5-325mg Tab PO Q6H PRN Pain, Moderate (4-6) Pantoprazole Sodium 20 mg 10/18/20 10:00 10/19/20 13:05 Pantoprazole 20 Mg Tab PO 20 mg QDAY [facility] Administration Simethicone 80 mg 10/18/20 07:30 10/19/20 21:57 Simethicone 80 Mg Chew Tab PO 80 mg ACHS [facility] Administration Sodium Chloride 10 ml 10/18/20 10:00 10/19/20 21:58 Sodium Chloride 0.9% 10 Ml Flush Syringe IV 10 ml BID [facility] Administration Sodium Chloride 10 ml 10/18/20 05:47 Sodium Chloride 0.9% 10 Ml Flush Syringe IV PRN PRN LINE FLUSH
[2020-10-20 07:55] LABS: Basophils % (Auto) 0.4 % (0.0-1.8); Eosinophils # (Auto) 0.1 K/mm3 (0.0-0.4); Eosinophils % (Auto) 2.3 % (0.0-4.3); Hematocrit 30.5 % (35.5-45.6); Hemoglobin 10.3 gm/dl (11.8-15.2); Lymphocytes % (Auto) 17.5 % (13.4-35.0); Mean Corpuscular HGB Conc 34 % (32-34); Mean Corpuscular Volume 93 fl (84-94); Monocytes # (Auto) 0.5 K/mm3 (0.0-0.8); Monocytes % (Auto) 9.3 % (0.0-7.3); Platelet Count 172 K/mm3 (140-440); Red Blood Count 3.28 M/mm3 (3.65-5.03)
[2020-10-20 08:34] LABS: INR 1.03 (0.87-1.13)
[2020-10-20] MEDS: SIMETHICONE 80 MG CHEW TAB PO SCH ×4 (11:53→21:52)
[2020-10-20] MEDS: PANTOPRAZOLE 20 MG TAB PO SCH (11:55)
[2020-10-20] MEDS: atenoloL 50 MG TAB PO SCH ×2 (11:56→21:54)
[2020-10-20] MEDS: amLODIPine 10 MG TAB PO SCH (11:56)
[2020-10-20] MEDS: hydrALAZINE 25 MG TAB PO SCH ×2 (12:15→21:52)
[2020-10-20] MEDS: LACTATED RINGERS 1,000 ML IV SCH ×2 (12:16→23:43)
--- NOTE | 2020-10-20 12:49 | Consultation ---
History of Present Illness - Reason for Consult Consult date: 10/20/20 DVT Requesting physician: LEN MICHAUD - History of Present Illness 70 years old male with history of colon cancer, diagnosed in 2005, diabetes and hypertension was brought to the emergency room because of abdominal pain and nausea. Patient stated that he had surgery and chemotherapy for colon cancer. Patient presented to the emergency room from a local intermediate via EMS for evaluation of abdominal pain. Patient stated that his abdominal pain has been going on for few days. Patient describes his pain as diffuse, crampy in nature with no radiation. Patient denied any fever or chills. Patient is nauseated but no vomiting . No diarrhea. In the emergency room patient is found to have BUN of 54 and creatinine 2.[address] scan of the abdomen shows no definite inflammatory process. Postoperative finding of small and large bowel mid small bowel dilatation which could represent enteritis, ileus or early obstruction Vascular consulted for bilateral lower extremity swelling with chronic left lower extremity deep venous thrombus and acute on chronic right lower extremity deep venous thrombus. Patient has indwelling filter placed multiple years ago for bleeding with underlying deep venous thrombus. Afterwards, he was able to resume anticoagulation until a few weeks ago when he had a near fatal GI bleed. His anticoagulation had to be discontinued. Since then, he developed swelling and now has extensive right lower extremity DVT and worsening swelling of his left lower extremity. May have caval occlusion as well. Past History Past Medical History: diabetes, hypertension, other (Colon cancer) Medications and Allergies Allergies Allergy/AdvReac Type Severity Reaction Status Date / Time Sulfa (Sulfonamide Allergy Unknown Verified 10/18/20 17:45 Antibiotics) IV DYE AdvReac Severe Shortness Uncoded 09/24/20 12:09 of Breath Home Medications Medication Instructions Recorded Confirmed Last Taken Type Amlodipine Besylate/Benazepril 10 - 20 tab PO DAILY 06/11/14 10/18/20 02/03/17 History [amLODIPine-Benazepril 10/20 mg] Omeprazole 20 mg PO DAILY 06/11/14 10/18/20 02/03/17 History Doxazosin [Cardura] 2 mg PO BID 02/04/17 10/18/20 02/03/17 History Atenolol [Tenormin] 100 mg PO DAILY 10/18/20 10/18/20 Unknown History Methocarbamol 500 mg PO DAILY 10/18/20 10/18/20 Unknown History Procrit 20,000 units SC 1XW 10/18/20 10/18/20 Unknown History Active Meds: Active Medications Acetaminophen (Acetaminophen 325 Mg Tab) 650 mg PO Q4H PRN PRN Reason: Pain MILD(1-3)/Fever >100.5/CHAUDHARY Albuterol (Albuterol 2.5 Mg/3 Ml Nebu) 2.5 mg IH Q4HRT PRN PRN Reason: Shortness Of Breath Albuterol/Ipratropium (Ipratropium/Albuterol Sulfate 3 Ml Ampul.Neb) 1 ampul IH TIDRT [facility] Last Admin: 10/20/20 07:43 Dose: 1 ampul Documented by: Amlodipine Besylate (Amlodipine 10 Mg Tab) 10 mg PO DAILY [facility] Last Admin: 10/20/20 11:56 Dose: 10 mg Documented by: Atenolol (Atenolol 50 Mg Tab) 100 mg PO BID [facility] Last Admin: 10/20/20 11:56 Dose: 100 mg Documented by: Citric Acid/Sodium Citrate (Bicitra Oral Liqd 30ml) 30 ml PO QID [facility] Last Admin: 10/20/20 11:58 Dose: 30 ml Documented by: Dextrose (Dextrose 50% In Water (25gm) 50 Ml Syringe) 50 ml IV Q30MIN PRN; Protocol PRN Reason: Hypoglycemia Doxazosin Mesylate (Doxazosin 1 Mg Tab) 2 mg PO BID [facility] Last Admin: 10/20/20 11:55 Dose: 2 mg Documented by: Hydralazine HCl (Hydralazine 25 Mg Tab) 50 mg PO Q8HR [facility] Last Admin: 10/20/20 12:15 Dose: 50 mg Documented by: Hydromorphone HCl (Hydromorphone 1 Mg/1 Ml Inj) 0.5 mg IV Q3H PRN PRN Reason: Pain , Severe (7-10) Last Admin: 10/18/20 23:52 Dose: 0.5 mg Documented by: Lactated Ringer's (Lactated Ringers) 1,000 mls @ 75 mls/hr IV DIRECT [facility] Last Admin: 10/20/20 12:16 Dose: 75 mls/hr Documented by: Insulin Glargine (Insulin Glargine 100 Units/Ml) 20 units SUB-Q QHS [facility] Last Admin: 10/20/20 01:22 Dose: Not Given Documented by: Insulin Human Lispro (Insulin Lispro 100 Unit/Ml) 0 unit SUB-Q Q6HR [facility]; Protocol Last Admin: 10/20/20 12:00 Dose: Not Given Documented by: Ondansetron HCl (Ondansetron 4 Mg/2 Ml Inj) 4 mg IV Q8H PRN PRN Reason: Nausea And Vomiting Oxycodone/Acetaminophen (Oxycodone /Acetaminophen 5-325mg Tab) 1 tab PO Q6H PRN PRN Reason: Pain, Moderate (4-6) Pantoprazole Sodium (Pantoprazole 20 Mg Tab) 20 mg PO QDAY [facility] Last Admin: 10/20/20 11:55 Dose: 20 mg Documented by: Simethicone (Simethicone 80 Mg Chew Tab) 80 mg PO ACHS [facility] Last Admin: 10/20/20 11:53 Dose: 80 mg Documented by: Sodium Chloride (Sodium Chloride 0.9% 10 Ml Flush Syringe) 10 ml IV BID [facility] Last Admin: 10/20/20 11:56 Dose: 10 ml Documented by: Sodium Chloride (Sodium Chloride 0.9% 10 Ml Flush Syringe) 10 ml IV PRN PRN PRN Reason: LINE FLUSH Review of Systems All systems: negative (see HPI) Exam - Constitutional Vitals: Temp Pulse Resp BP Pulse Ox 97.7 F 79 20 158/75 100 10/20/20 12:01 10/20/20 12:01 10/20/20 12:01 10/20/20 12:01 10/20/20 12:01 General appearance: Present: no acute distress - EENT Eyes: Present: EOM intact ENT: hearing intact - Neck Neck: Present: supple - Respiratory Respiratory effort: normal - Extremities Extremities: pulses intact (Palpable right dorsalis pedis pulse, nonpalpable left pedal pulses), normal temperature, normal color Extremity abnormal: edema (4+ edema right lower extremity, 3+ edema left lower extremity), other (No pain) - Psychiatric Psychiatric: appropriate mood/affect, cooperative - Neurologic Neurologic: moves all extremities Results - Labs CBC & Chem 7: 10/20/20 06:56 10/19/20 04:50 Labs: Abnormal lab results 10/19/20 10/20/20 10/20/20 Range/Units 13:51 06:56 12:10 RBC 3.28 L (3.65-5.03) M/mm3 Hgb 10.3 L (11.8-15.2) gm/dl Hct 30.5 L (35.5-45.6) % RDW 18.0 H (13.2-15.2) % [place] % (Auto) 9.3 H (0.0-7.3) % Lymph # (Auto) 1.0 L (1.2-5.4) K/mm3 Seg Neutrophils % 70.5 H (40.0-70.0) % ABG pH 7.226 L (7.320-7.450) POC ABG pCO2 23.9 L (32.0-48.0) mmHg POC ABG pO2 114.7 H (83-108) mmHg ABG Hemoglobin 11.6 L (12.0-17.5) ABG Chloride 120.0 H (98-107) mmol/L ABG Glucose 129 H (65-95) mg/dL Carboxyhemoglobin 0.4 L (0.5-1.5) POC Glucose 121 H (70-105) mg/dL Arterial Blood Glucose 129 H (65-95) mg/dL Assessment and Plan 70-year-old male with metastatic colorectal cancer and right lower extremity acute on chronic deep venous thrombus in left lower extremity chronic deep venous thrombus with bilateral lower extremity swelling. Patient also has IVC filter may have caval occlusion. Patient cannot tolerate anticoagulation due to GI bleeding issues. Given his inability to tolerate anticoagulation, endovascular therapies cannot be performed. Perhaps in the future he may be considered for low-dose Eliquis 2.5 mg p.o. twice daily. At this time, this is not possible. Recommend compression hose. When patient follows up in the office, he may be candidate for lymphedema pump. I will obtain an arterial study given his nonpalpable left pedal pulses, but currently both lower extremities have no pain associated with them despite the swelling. Follow-up in 1 to 2 weeks
[2020-10-20 14:51] LABS: Calcium 8.1 mg/dL (8.4-10.2)
--- NOTE | 2020-10-20 15:00 | Progress Note ---
Assessment and Plan Assessment and plan: 70 years old male with history of colon cancer, diagnosed in 2005, diabetes and hypertension was brought to the emergency room because of abdominal pain and nausea. Patient stated that he had surgery and chemotherapy for colon cancer. Patient presented to the emergency room from a local alf via EMS for evaluation of abdominal pain. Patient stated that his abdominal pain has been going on for few days. Patient describes his pain as diffuse, crampy in nature with no radiation. Patient denied any fever or chills. Patient is nauseated but no vomiting . No diarrhea. In the emergency room patient is found to have BUN of 54 and creatinine 2.[address] scan of the abdomen shows no definite inflammatory process. Postoperative finding of small and large bowel mid small bowel dilatation which could represent enteritis, ileus or early obstruction Spoke to in detail patient was brought to the hospital last year he was noted to have labored breathing he has had this before in the past when he had pulmonary embolism they also noted to have bilateral lower extremity swelling which has been worsening he was started on Lasix recently by his primary care physician at the alf. With no improvement. The patient also has an IVC filter as revealed by the spouse and has been off anticoagulation for a few weeks. He had a recent near fatal GI bleed and was treated at [place] we'll request records. At this time will have vascular evaluate the patient to see if the IVC filter is clogged. Nephrology is already following the patient will defer to them if patient can be restarted on IV Lasix. His creatinine appears to be baseline from last year but I do not have any current data from recent hospitalization at [facility]. I have discussed with nursing staff to update his home medication list. 10/19: Discussed with vascular surgeon and also with paint stockman. Patient still with severe metabolic acidosis. No indication for Lasix at this time. Will start patient on LR at 75 cc an hour. Ultrasound reviewed shows bilateral chronic DVTs. Again per as noted above patient had a near fatal GI bleed still awaiting records from [facility] as requested. No further abdominal pain or nausea noted. VQ scan done did not reveal any pulmonary embolism 10/20: Continue to monitor Renal function and acidosis, anticipate discharge in AM, Discussed with Functional Manager, Vascular input noted. "Patient also has IVC filter may have caval occlusion.Patient cannot tolerate anticoagulation due to GI bleeding issues. Given his inability to tolerate anticoagulation, endovascular therapies cannot be performed...Recommend compression hose. When patient follows up in the office, he may be candidate for lymphedema pump.I will obtain an arterial study given his nonpalpable left pedal pulses, but currently both lower extremities have no pain associated with them despite the swelling. Follow-up in 1 to 2 weeks" (1) Acute on chronic renal failure Current Visit: Yes Status: Acute Plan to address problem: Admit the patient to the medical telemetry. Half-normal saline at the rate of 100 cc/h. Avoid nephrotoxic drug. Renally dose medication repeat BMP in the morning nephrology consult. (2) severe metabolic acidosis a (3) Nausea Current Visit: Yes Status: Acute Plan to address problem: N.p.o. half-normal saline at the rate of 100 cc/h. Pepcid 20 mg IV every 12 hours. Zofran 4 mg IV every 6 hours as needed. (4) Diabetes Current Visit: No Status: Acute Plan to address problem: NPO. Half-normal saline at the rate of 100 cc/h. We will put the patient on Humalog sliding scale moderate dose coverage and Lantus 20 units subcu nightly. We will monitor the glucose closely (5) Hypertension Current Visit: No Status: Chronic Plan to address problem: Amlodipine 10 mg p.o. daily. Atenolol 100 milligrams p.o. twice daily. We will monitor the blood pressure closely (6) acute abdominal pain Current Visit: Yes Status: Acute Plan to address problem: N.p.o. half-normal saline at the rate of 100 cc/h. Pepcid 20 mg IV every 12 hours. Zofran 4 mg IV every 6 hours as needed. We will monitor the patient closely. If needed will consult GI (7) recent GI bleed (8) chronic CKD (9) DVT prophylaxis Current Visit: No Status: Acute Plan to address problem: Heparin 5000 units subcu every 8 hours for DVT prophylaxis. Pepcid 20 mg IV every 12 hours for GI prophylaxis. Patient is a full code History Interval history: Patient seen and examined this morning in no acute distress resting comfortably. Hospitalist Physical - Physical exam Narrative exam: - Constitutional General appearance: Present: no acute distress, well-nourished - EENT Eyes: Present: PERRL ENT: hearing intact, clear oral mucosa - Neck Neck: Present: supple, normal ROM - Respiratory Respiratory effort: normal Respiratory: bilateral: CTA - Cardiovascular Heart Sounds: Present: S1 & S2. Absent: rub, click - Extremities Extremities: pulses symmetrical, bilateral pitting edema Peripheral Pulses: within normal limits - Abdominal General gastrointestinal: Present: soft, non-tender, non-distended, normal bowel sounds Male genitourinary: Present: normal - Integumentary Integumentary: Present: clear, warm - Musculoskeletal Musculoskeletal: gait not tested, strength equal bilaterally - Psychiatric Psychiatric: appropriate mood/affect, intact judgment & insight - Neurologic Neurologic: CNII-XII intact, moves all extremities - Constitutional Vitals: Temp Pulse Resp BP Pulse Ox 97.7 F 79 20 158/75 100 10/20/20 12:01 10/20/20 12:01 10/20/20 12:01 10/20/20 12:01 10/20/20 12:01 General appearance: Present: no acute distress Results - Labs CBC & Chem 7: 10/20/20 06:56 10/20/20 13:35 Labs: Laboratory Last Values WBC 5.7 K/mm3 (4.5-11.0) 10/20/20 06:56 RBC 3.28 M/mm3 (3.65-5.03) L 10/20/20 06:56 Hgb 10.3 gm/dl (11.8-15.2) L 10/20/20 06:56 Hct 30.5 % (35.5-45.6) L 10/20/20 06:56 MCV 93 fl (84-94) 10/20/20 06:56 MCH 32 pg (28-32) 10/20/20 06:56 MCHC 34 % (32-34) 10/20/20 06:56 RDW 18.0 % (13.2-15.2) H 10/20/20 06:56 Plt Count 172 K/mm3 (140-440) 10/20/20 06:56 Lymph % (Auto) 17.5 % (13.4-35.0) 10/20/20 06:56 [place] % (Auto) 9.3 % (0.0-7.3) H 10/20/20 06:56 Eos % (Auto) 2.3 % (0.0-4.3) 10/20/20 06:56 Baso % (Auto) 0.4 % (0.0-1.8) 10/20/20 06:56 Lymph # (Auto) 1.0 K/mm3 (1.2-5.4) L 10/20/20 06:56 [place] # (Auto) 0.5 K/mm3 (0.0-0.8) 10/20/20 06:56 Eos # (Auto) 0.1 K/mm3 (0.0-0.4) 10/20/20 06:56 Baso # (Auto) 0.0 K/mm3 (0.0-0.1) 10/20/20 06:56 Seg Neutrophils % 70.5 % (40.0-70.0) H 10/20/20 06:56 Seg Neutrophils # 4.0 K/mm3 (1.8-7.7) 10/20/20 06:56 PT 14.0 Sec. (12.2-14.9) 10/20/20 06:56 INR 1.03 (0.87-1.13) 10/20/20 06:56 D-Dimer 6325.00 ng/mlDDU (0-234) H 10/18/20 13:41 ABG pH 7.226 (7.320-7.450) L 10/19/20 13:51 POC ABG pCO2 23.9 mmHg (32.0-48.0) L 10/19/20 13:51 POC ABG pO2 114.7 mmHg (83-108) H 10/19/20 13:51 POC ABG HCO3 9.7 10/19/20 13:51 ABG O2 Saturation 98.0 (0-100) 10/19/20 13:51 POC ABG Base Excess -16.2 10/19/20 13:51 ABG Hemoglobin 11.6 (12.0-17.5) L 10/19/20 13:51 ABG Oxyhemoglobin 97.3 (94-98) 10/19/20 13:51 ABG Methemoglobin 0.3 (0.0-1.5) 10/19/20 13:51 ABG Sodium 142.8 mmol/L (136.0-145.0) 10/19/20 13:51 ABG Potassium 3.5 mmol/L (3.40-4.50) 10/19/20 13:51 ABG Chloride 120.0 mmol/L (98-107) H 10/19/20 13:51 ABG Glucose 129 mg/dL (65-95) H 10/19/20 13:51 Carboxyhemoglobin 0.4 (0.5-1.5) L 10/19/20 13:51 FiO2 % 21.0 10/19/20 13:51 Sodium 145 mmol/L (137-145) 10/20/20 13:35 Potassium 3.4 mmol/L (3.6-5.0) L 10/20/20 13:35 Chloride 114.1 mmol/L (98-107) H 10/20/20 13:35 Carbon Dioxide 15 mmol/L (22-30) L 10/20/20 13:35 Anion Gap 19 mmol/L 10/20/20 13:35 BUN 44 mg/dL (9-20) H 10/20/20 13:35 Creatinine 2.1 mg/dL (0.8-1.3) H 10/20/20 13:35 Estimated GFR 38 ml/min 10/20/20 13:35 BUN/Creatinine Ratio 21 % 10/20/20 13:35 Glucose 94 mg/dL (75-100) 10/20/20 13:35 POC Glucose 121 mg/dL (70-105) H 10/20/20 12:10 Ketones Quantitative Negative (Negative) 10/20/20 06:56 Lactic Acid 0.90 mmol/L (0.7-2.0) 10/18/20 13:41 Calcium 8.1 mg/dL (8.4-10.2) L 10/20/20 13:35 Phosphorus 4.40 mg/dL (2.5-4.5) 10/20/20 06:56 Total Bilirubin 0.20 mg/dL (0.1-1.2) 10/18/20 04:03 Direct Bilirubin < 0.2 mg/dL (0-0.2) 10/18/20 04:03 Indirect Bilirubin 0.0 mg/dL 10/18/20 04:03 AST 17 units/L (5-40) 10/18/20 04:03 ALT 18 units/L (7-56) 10/18/20 04:03 Alkaline Phosphatase 54 units/L (35-129) 10/18/20 04:03 Total Creatine Kinase 57 units/L (55-170) 10/18/20 11:44 Total Protein 6.2 g/dL (6.3-8.2) L 10/18/20 04:03 Albumin 3.0 g/dL (3.9-5) L 10/18/20 04:03 Albumin/Globulin Ratio 0.9 % 10/18/20 04:03 Lipase 20 units/L (13-60) 10/18/20 04:03 Arterial Blood Glucose 129 mg/dL (65-95) H 10/19/20 13:51 Urine Color Yellow (Yellow) 10/18/20 07:13 Urine Turbidity Clear (Clear) 10/18/20 07:13 Urine pH 5.0 (5.0-7.0) 10/18/20 07:13 Ur Specific [place] 1.010 (1.003-1.030) 10/18/20 07:13 Urine Protein <15 mg/dl mg/dL (Negative) 10/18/20 07:13 Urine Glucose (UA) Neg mg/dL (Negative) 10/18/20 07:13 Urine Ketones Negative mg/dL (Negative) 10/20/20 07:53 Urine Blood Neg (Negative) 10/18/20 07:13 Urine Nitrite Pos (Negative) 10/18/20 07:13 Urine Bilirubin Neg (Negative) 10/18/20 07:13 Urine Urobilinogen < 2.0 mg/dL (<2.0) 10/18/20 07:13 Ur Leukocyte Esterase Tr (Negative) 10/18/20 07:13 Urine WBC (Auto) 25.0 /HPF (0.0-6.0) H 10/18/20 07:13 Urine RBC (Auto) 3.0 /HPF (0.0-6.0) 10/18/20 07:13 Urine Bacteria (Auto) 2+ /HPF (Negative) 10/18/20 07:13 Urine Creatinine 43.7 mg/dL (0.1-20.0) H 10/18/20 09:10 Urine Creatinine 44.8 mg/dL (0.1-20.0) H 10/18/20 09:10 Protein/Creatinin Ratio 0.66 10/18/20 09:10 Urine Sodium 86 mmol/L 10/18/20 09:10 Urine Total Protein 29 mg/dL (5-11.8) H 10/18/20 09:10 Microbiology: Microbiology 10/18/20 11:44 Peripheral/Venous Blood Culture - Preliminary NO GROWTH AFTER 48 HOURS 10/18/20 11:44 Peripheral/Venous Blood Culture - Preliminary NO GROWTH AFTER 48 HOURS Seals/IV: Voiding Method Incontinent Active Medications - Current Medications Current Medications: Generic Name Dose Route Start Last Admin Trade Name Freq PRN Reason Stop Dose Admin Acetaminophen 650 mg 10/18/20 05:47 Acetaminophen 325 Mg Tab PO Q4H PRN Pain MILD(1-3)/Fever >100.5/CHAUDHARY Albuterol 2.5 mg 10/18/20 05:47 Albuterol 2.5 Mg/3 Ml Nebu IH Q4HRT PRN Shortness Of Breath Albuterol/Ipratropium 1 ampul 10/20/20 08:00 10/20/20 07:43 Ipratropium/Albuterol Sulfate 3 Ml Ampul.Neb IH 1 ampul TIDRT PTARICK Administration Amlodipine Besylate 10 mg 10/18/20 10:00 10/20/20 11:56 Amlodipine 10 Mg Tab PO 10 mg DAILY PATRICK Administration Atenolol 100 mg 10/18/20 10:00 10/20/20 11:56 Atenolol 50 Mg Tab PO 100 mg BID PATRICK Administration Citric Acid/Sodium Citrate 30 ml 10/19/20 14:00 10/20/20 11:58 Bicitra Oral Liqd 30ml PO 30 ml QID PATRICK Administration Dextrose 50 ml 10/18/20 06:05 Dextrose 50% In Water (25gm) 50 Ml Syringe IV Q30MIN PRN Hypoglycemia Protocol Doxazosin Mesylate 2 mg 10/18/20 10:00 10/20/20 11:55 Doxazosin 1 Mg Tab PO 2 mg BID PATRICK Administration Hydralazine HCl 50 mg 10/20/20 12:00 10/20/20 12:15 Hydralazine 25 Mg Tab PO 50 mg Q8HR PATRICK Administration Hydromorphone HCl 0.5 mg 10/18/20 05:47 10/18/20 23:52 Hydromorphone 1 Mg/1 Ml Inj IV 0.5 mg Q3H PRN Administration Pain , Severe (7-10) Lactated Ringer's 1,000 mls @ 75 mls/hr 10/19/20 14:30 10/20/20 12:16 Lactated Ringers IV 75 mls/hr DIRECT PATRICK Administration Insulin Glargine 20 units 10/18/20 22:00 10/20/20 01:22 Insulin Glargine 100 Units/Ml SUB-Q Not Given QHS PATRICK Insulin Human Lispro 0 unit 10/18/20 12:00 10/20/20 12:00 Insulin Lispro 100 Unit/Ml SUB-Q Not Given Q6HR [facility] Protocol Ondansetron HCl 4 mg 10/18/20 05:47 Ondansetron 4 Mg/2 Ml Inj IV Q8H PRN Nausea And Vomiting Oxycodone/Acetaminophen 1 tab 10/18/20 05:47 Oxycodone /Acetaminophen 5-325mg Tab PO Q6H PRN Pain, Moderate (4-6) Pantoprazole Sodium 20 mg 10/18/20 10:00 10/20/20 11:55 Pantoprazole 20 Mg Tab PO 20 mg QDAY PATRICK Administration Simethicone 80 mg 10/18/20 07:30 10/20/20 11:53 Simethicone 80 Mg Chew Tab PO 80 mg ACHS PATRICK Administration Sodium Chloride 10 ml 10/18/20 10:00 10/20/20 11:56 Sodium Chloride 0.9% 10 Ml Flush Syringe IV 10 ml BID PATRICK Administration Sodium Chloride 10 ml 10/18/20 05:47 Sodium Chloride 0.9% 10 Ml Flush Syringe IV PRN PRN LINE FLUSH Nutrition/Malnutrition Assess - Dietary Evaluation Nutrition/Malnutrition Findings: Nutrition Notes Start: 10/18/20 10:25 Freq: Status: Active Protocol: Document 10/20/20 12:26 [place] (Rec: 10/20/20 12:30 [facility] [id number]) Nutrition Notes Need for Assessment generated from: paint prepper,MST Initial or Follow up Brief Note Current Diet Renal Height 5 ft 8 in Weight 78.2 kg Usual Body Weight 90.9 kg [place] Body Weight (kg) 70.00 BMI 26.2 Weight change and time frame Pt reports unintentional wt loss over past two yrs sec to illness (14% wt loss x two yrs ) Weight Status Appropriate Subjective/Other Information Spoke with pt via phone at 12: 27. Pt reports "wonderful" appetite; he consumed 100% of breakfast this am. Minimum of two criteria No Nutrition Intervention Follow-Up By: 10/27/20 Additional Comments F/U: stable intakes, wt
--- NOTE | 2020-10-20 16:34 | Vascular Lab Report ---
DUPLEX DOPPLER LOWER EXTREMITY ARTERIAL, BILATERAL INDICATION / CLINICAL INFORMATION: abnormal pulse exam. TECHNIQUE: Arterial duplex examination of both lower extremities performed using B-mode, color flow and spectral Doppler assessment. FINDINGS: RIGHT: Common Femoral Artery: PSV 82 cm/sec. Triphasic waveform. Proximal SFA: PSV 60 cm/sec. Triphasic waveform. Mid SFA: PSV 68 cm/sec. Triphasic waveform. Distal SFA: PSV 81 cm/sec. Triphasic waveform. Popliteal artery: PSV 43 cm/sec. Triphasic waveform. Posterior tibial artery: PSV 53 cm/sec. Triphasic waveform. Dorsalis Pedis Artery: PSV 56 cm/sec. Triphasic waveform. LEFT: Common Femoral Artery: PSV 32 cm/sec. Triphasic waveform. Proximal SFA: PSV 43 cm/sec. Triphasic waveform. Mid SFA: PSV 55 cm/sec. Biphasic waveform. Distal SFA: PSV 38 cm/sec. Biphasic waveform. Popliteal artery: PSV 32 cm/sec. Biphasic waveform. Posterior tibial artery: PSV 56 cm/sec. Biphasic waveform. Dorsalis Pedis Artery: PSV 32 cm/sec. Biphasic waveform. IMPRESSION: 1. Probable hemodynamically significant left lower extremity arterial disease as evidenced by wavefor m transition Ankle-Brachial Index (KADIE): - Calcified arteries > 1.4 - Normal = 0.9-1.4 - Mild PAD = 0.7-0.89 - Moderate PAD = 0.51-0.69 - Severe PAD < 0.5 Doppler Waveform: - Triphasic is normal. - Biphasic is abnormal if clear transition from triphasic signal along vascular tree. - Monophasic is abnormal. Signer Name: Victor Manuel Bob MD Signed: 10/20/2020 4:29 PM Workstation Name: [id number]
[2020-10-21] MEDS: INSULIN LISPRO 100 UNIT/ML SUB-Q SCH ×4 (00:05→17:43)
[2020-10-21 05:41] LABS: Basophils % (Auto) 0.4 % (0.0-1.8); Eosinophils # (Auto) 0.1 K/mm3 (0.0-0.4); Hematocrit 30.9 % (35.5-45.6); Hemoglobin 10.6 gm/dl (11.8-15.2); Lymphocytes # (Auto) 1.3 K/mm3 (1.2-5.4); Lymphocytes % (Auto) 21.4 % (13.4-35.0); Mean Corpuscular HGB Conc 34 % (32-34); Mean Corpuscular Volume 92 fl (84-94); Monocytes # (Auto) 0.5 K/mm3 (0.0-0.8); Platelet Count 187 K/mm3 (140-440); Red Blood Count 3.37 M/mm3 (3.65-5.03); Red Cell Distribution Width 18.1 % (13.2-15.2)
[2020-10-21] MEDS: DEXTROSE 50% IN WATER (25GM) 50 ML SYRINGE IV PRN ×3 (06:01→17:37)
[2020-10-21] MEDS: hydrALAZINE 25 MG TAB PO SCH ×3 (06:02→22:41)
[2020-10-21 06:12] LABS: Calcium 7.6 mg/dL (8.4-10.2)
[2020-10-21 06:18] LABS: INR 1.1 (0.87-1.13)
[2020-10-21] MEDS ORDERED: POTASSIUM CHLORIDE ER 20 MEQ TAB PO NR (09:00)
[2020-10-21] MEDS: SIMETHICONE 80 MG CHEW TAB PO SCH ×4 (10:46→22:41)
[2020-10-21] MEDS: PANTOPRAZOLE 20 MG TAB PO SCH (10:47)
[2020-10-21] MEDS: atenoloL 50 MG TAB PO SCH ×2 (10:47→22:42)
[2020-10-21] MEDS: DOXAZOSIN 1 MG TAB PO SCH ×2 (10:47→22:43)
[2020-10-21] MEDS: amLODIPine 10 MG TAB PO SCH (10:47)
[2020-10-21] MEDS: BICITRA ORAL LIQD 30ML PO SCH ×3 (10:49→22:43)
--- NOTE | 2020-10-21 10:59 | Progress Note ---
Assessment and Plan (1) Acute on chronic renal failure (2) Acute abdominal pain (3) AG metabolic acidosis (4) Diabetes (5) Hypertension stable kidney function worsening bicarb level, negative lactic and ketones, likely due to decreased GFR, will change IVF to sodium bicarb gtt to 125 cc/h, will also add K bicarb 25 meq BID and check BMP ~1800 will recheck ABG cont bicitra 30 cc QID no indication for [employer] renally dose meds strict I&O daily weight Flakito Alvarado MD [phone] Subjective Date of service: 10/21/20 Principal diagnosis: renal failure Interval history: no acute distress Objective - Vital Signs Vital signs: Vital Signs - 12hr 10/21/20 10/21/20 05:00 07:09 Temperature 98.5 F Pulse Rate 75 Respiratory 18 Rate Blood Pressure 151/77 [Right] O2 Sat by Pulse 100 97 Oximetry - Lab 10/22/20 07:40 10/22/20 07:40 Most recent lab results ABG pH 7.226 (7.320-7.450) L 10/19/20 13:51 ABG O2 Saturation 98.0 (0-100) 10/19/20 13:51 Calcium 7.6 mg/dL (8.4-10.2) L 10/21/20 04:58 Phosphorus 4.00 mg/dL (2.5-4.5) 10/21/20 04:58 Urine Creatinine 43.7 mg/dL (0.1-20.0) H 10/18/20 09:10 Urine Creatinine 44.8 mg/dL (0.1-20.0) H 10/18/20 09:10 Urine Sodium 86 mmol/L 10/18/20 09:10 Urine Total Protein 29 mg/dL (5-11.8) H 10/18/20 09:10 Medications & Allergies - Medications Allergies/Adverse Reactions: Allergies Sulfa (Sulfonamide Antibiotics) Allergy (Verified 10/18/20 17:45) Unknown IV DYE Adverse Reaction (Severe, Uncoded 09/24/20 12:09) Shortness of Breath Home Medications: Home Medications Medication Instructions Recorded Confirmed Last Taken Type Amlodipine Besylate/Benazepril 10 - 20 tab PO DAILY 06/11/14 10/18/20 02/03/17 History [amLODIPine-Benazepril 10/20 mg] Omeprazole 20 mg PO DAILY 06/11/14 10/18/20 02/03/17 History Doxazosin [Cardura] 2 mg PO BID 02/04/17 10/18/20 02/03/17 History Atenolol [Tenormin] 100 mg PO DAILY 10/18/20 10/18/20 Unknown History Methocarbamol 500 mg PO DAILY 10/18/20 10/18/20 Unknown History Procrit 20,000 units SC 1XW 10/18/20 10/18/20 Unknown History Active Medications: Generic Name Dose Route Start Last Admin Trade Name Freq PRN Reason Stop Dose Admin Acetaminophen 650 mg 10/18/20 05:47 Acetaminophen 325 Mg Tab PO Q4H PRN Pain MILD(1-3)/Fever >100.5/CHAUDHARY Albuterol 2.5 mg 10/18/20 05:47 Albuterol 2.5 Mg/3 Ml Nebu IH Q4HRT PRN Shortness Of Breath Amlodipine Besylate 10 mg 10/18/20 10:00 10/21/20 10:47 Amlodipine 10 Mg Tab PO 10 mg DAILY PATRICK Administration Atenolol 100 mg 10/18/20 10:00 10/21/20 10:47 Atenolol 50 Mg Tab PO 100 mg BID PATRICK Administration Citric Acid/Sodium Citrate 30 ml 10/19/20 14:00 10/21/20 10:49 Bicitra Oral Liqd 30ml PO 30 ml QID PATRICK Administration Dextrose 50 ml 10/18/20 06:05 10/21/20 06:01 Dextrose 50% In Water (25gm) 50 Ml Syringe IV 50 ml Q30MIN PRN Administration Hypoglycemia Protocol Doxazosin Mesylate 2 mg 10/18/20 10:00 10/21/20 10:47 Doxazosin 1 Mg Tab PO 2 mg BID PATRICK Administration Hydralazine HCl 50 mg 10/20/20 12:00 10/21/20 06:02 Hydralazine 25 Mg Tab PO 50 mg Q8HR PATRICK Administration Hydromorphone HCl 0.5 mg 10/18/20 05:47 10/18/20 23:52 Hydromorphone 1 Mg/1 Ml Inj IV 0.5 mg Q3H PRN Administration Pain , Severe (7-10) Sodium Bicarbonate 150 meq/ 1,150 mls @ 125 mls/hr 10/21/20 11:00 Dextrose IV DIRECT PATRICK Insulin Glargine 20 units 10/18/20 22:00 10/20/20 21:59 Insulin Glargine 100 Units/Ml SUB-Q 20 units QHS PATRICK Administration Insulin Human Lispro 0 unit 10/21/20 11:30 Insulin Lispro 100 Unit/Ml SUB-Q AC [facility] Protocol Ondansetron HCl 4 mg 10/18/20 05:47 Ondansetron 4 Mg/2 Ml Inj IV Q8H PRN Nausea And Vomiting Oxycodone/Acetaminophen 1 tab 10/18/20 05:47 Oxycodone /Acetaminophen 5-325mg Tab PO Q6H PRN Pain, Moderate (4-6) Pantoprazole Sodium 20 mg 10/18/20 10:00 10/21/20 10:47 Pantoprazole 20 Mg Tab PO 20 mg QDAY PATRICK Administration Potassium Bicarbonate 25 meq 10/21/20 11:00 K-Lyte 25 Meq Tablet Eff PO BID PATRICK Potassium Chloride 40 meq 10/21/20 09:00 10/21/20 10:47 Potassium Chloride Er 20 Meq Tab PO 10/21/20 12:00 40 meq ONCE@0900 NR Administration Simethicone 80 mg 10/18/20 07:30 10/21/20 10:46 Simethicone 80 Mg Chew Tab PO 80 mg ACHS PATRICK Administration Sodium Chloride 10 ml 10/18/20 10:00 10/21/20 10:47 Sodium Chloride 0.9% 10 Ml Flush Syringe IV 10 ml BID PATRICK Administration Sodium Chloride 10 ml 10/18/20 05:47 Sodium Chloride 0.9% 10 Ml Flush Syringe IV PRN PRN LINE FLUSH
[2020-10-21] MEDS ORDERED: cefTRIAXone/NS 1 GM/50 ML 1 GM/50 ML BAG IV SCH (12:00)
--- NOTE | 2020-10-21 12:23 | Progress Note ---
Assessment and Plan Assessment and plan: 70 years old male with history of colon cancer, diagnosed in 2005, diabetes and hypertension was brought to the emergency room because of abdominal pain and nausea. Patient stated that he had surgery and chemotherapy for colon cancer. Patient presented to the emergency room from a local senior living via EMS for evaluation of abdominal pain. Patient stated that his abdominal pain has been going on for few days. Patient describes his pain as diffuse, crampy in nature with no radiation. Patient denied any fever or chills. Patient is nauseated but no vomiting . No diarrhea. In the emergency room patient is found to have BUN of 54 and creatinine 2.[address] scan of the abdomen shows no definite inflammatory process. Postoperative finding of small and large bowel mid small bowel dilatation which could represent enteritis, ileus or early obstruction Spoke to in detail patient was brought to the hospital last year he was noted to have labored breathing he has had this before in the past when he had pulmonary embolism they also noted to have bilateral lower extremity swelling which has been worsening he was started on Lasix recently by his primary care physician at the senior living. With no improvement. The patient also has an IVC filter as revealed by the spouse and has been off anticoagulation for a few weeks. He had a recent near fatal GI bleed and was treated at [place] we'll request records. At this time will have vascular evaluate the patient to see if the IVC filter is clogged. Nephrology is already following the patient will defer to them if patient can be restarted on IV Lasix. His creatinine appears to be baseline from last year but I do not have any current data from recent hospitalization at [facility]. I have discussed with nursing staff to update his home medication list. 10/19: Discussed with vascular surgeon and also with veterinary pathologist. Patient still with severe metabolic acidosis. No indication for Lasix at this time. Will start patient on LR at 75 cc an hour. Ultrasound reviewed shows bilateral chronic DVTs. Again per as noted above patient had a near fatal GI bleed still awaiting records from [facility] as requested. No further abdominal pain or nausea noted. VQ scan done did not reveal any pulmonary embolism 10/20: Continue to monitor Renal function and acidosis, anticipate discharge in AM, Discussed with Degreasing Solution Reclaimer, Vascular input noted. "Patient also has IVC filter may have caval occlusion.Patient cannot tolerate anticoagulation due to GI bleeding issues. Given his inability to tolerate anticoagulation, endovascular therapies cannot be performed...Recommend compression hose. When patient follows up in the office, he may be candidate for lymphedema pump.I will obtain an arterial study given his nonpalpable left pedal pulses, but currently both lower extremities have no pain associated with them despite the swelling. Follow-up in 1 to 2 weeks" 10/21: Patient remains status quo with no clinical change. Urine culture came back growing ESBL will put on isolation again he has no symptoms no fever. No treatment indicated at this time. Will put on isolation of contact. Nephrology continues to follow on per veterinary pathologist -stable kidney function-worsening bicarb level, negative lactic and ketones, likely due to decreased GFR, will change IVF to sodium bicarb gtt to 125 cc/h, will also add K bicarb 25 meq BID and check BMP ~1800 will recheck ABG (1) Acute on chronic renal failure Current Visit: Yes Status: Acute Plan to address problem: Admit the patient to the medical telemetry. Half-normal saline at the rate of 100 cc/h. Avoid nephrotoxic drug. Renally dose medication repeat BMP in the morning nephrology consult. (2) severe metabolic acidosis a (3) Nausea Current Visit: Yes Status: Acute Plan to address problem: N.p.o. half-normal saline at the rate of 100 cc/h. Pepcid 20 mg IV every 12 hours. Zofran 4 mg IV every 6 hours as needed. (4) Diabetes Current Visit: No Status: Acute Plan to address problem: NPO. Half-normal saline at the rate of 100 cc/h. We will put the patient on Humalog sliding scale moderate dose coverage and Lantus 20 units subcu nightly. We will monitor the glucose closely (5) Hypertension Current Visit: No Status: Chronic Plan to address problem: Amlodipine 10 mg p.o. daily. Atenolol 100 milligrams p.o. twice daily. We will monitor the blood pressure closely (6) acute abdominal pain Current Visit: Yes Status: Acute Plan to address problem: N.p.o. half-normal saline at the rate of 100 cc/h. Pepcid 20 mg IV every 12 hours. Zofran 4 mg IV every 6 hours as needed. We will monitor the patient closely. If needed will consult GI (7) recent GI bleed (8) chronic CKD (9) DVT prophylaxis Current Visit: No Status: Acute Plan to address problem: Heparin 5000 units subcu every 8 hours for DVT prophylaxis. Pepcid 20 mg IV every 12 hours for GI prophylaxis. Patient is a full code History Interval history: Patient seen and examined this morning in no acute distress resting comfortably. Denies any dysuria. Was hypoglycemic this morning nursing staff stated that he had not eaten much this morning. He denies any lack of appetite. Hospitalist Physical - Physical exam Narrative exam: - Constitutional General appearance: Present: no acute distress, well-nourished - EENT Eyes: Present: PERRL ENT: hearing intact, clear oral mucosa - Neck Neck: Present: supple, normal ROM - Respiratory Respiratory effort: normal Respiratory: bilateral: CTA - Cardiovascular Heart Sounds: Present: S1 & S2. Absent: rub, click - Extremities Extremities: pulses symmetrical, bilateral pitting edema Peripheral Pulses: within normal limits - Abdominal General gastrointestinal: Present: soft, non-tender, non-distended, normal bowel sounds Male genitourinary: Present: normal - Integumentary Integumentary: Present: clear, warm, bilateral lower extremity pitting edema - Musculoskeletal Musculoskeletal: gait not tested, strength equal bilaterally - Psychiatric Psychiatric: appropriate mood/affect, intact judgment & insight - Neurologic Neurologic: CNII-XII intact, moves all extremities - Constitutional Vitals: Temp Pulse Resp BP Pulse Ox 98.5 F 75 18 151/77 97 10/21/20 05:00 10/21/20 05:00 10/21/20 05:00 10/21/20 05:00 10/21/20 07:09 General appearance: Present: no acute distress Results - Labs CBC & Chem 7: 10/21/20 04:58 10/21/20 07:47 Labs: Laboratory Last Values WBC 6.1 K/mm3 (4.5-11.0) 10/21/20 04:58 RBC 3.37 M/mm3 (3.65-5.03) L 10/21/20 04:58 Hgb 10.6 gm/dl (11.8-15.2) L 10/21/20 04:58 Hct 30.9 % (35.5-45.6) L 10/21/20 04:58 MCV 92 fl (84-94) 10/21/20 04:58 MCH 32 pg (28-32) 10/21/20 04:58 MCHC 34 % (32-34) 10/21/20 04:58 RDW 18.1 % (13.2-15.2) H 10/21/20 04:58 Plt Count 187 K/mm3 (140-440) 10/21/20 04:58 Lymph % (Auto) 21.4 % (13.4-35.0) 10/21/20 04:58 [place] % (Auto) 8.0 % (0.0-7.3) H 10/21/20 04:58 Eos % (Auto) 2.0 % (0.0-4.3) 10/21/20 04:58 Baso % (Auto) 0.4 % (0.0-1.8) 10/21/20 04:58 Lymph # (Auto) 1.3 K/mm3 (1.2-5.4) 10/21/20 04:58 [place] # (Auto) 0.5 K/mm3 (0.0-0.8) 10/21/20 04:58 Eos # (Auto) 0.1 K/mm3 (0.0-0.4) 10/21/20 04:58 Baso # (Auto) 0.0 K/mm3 (0.0-0.1) 10/21/20 04:58 Seg Neutrophils % 68.2 % (40.0-70.0) 10/21/20 04:58 Seg Neutrophils # 4.2 K/mm3 (1.8-7.7) 10/21/20 04:58 PT 14.7 Sec. (12.2-14.9) 10/21/20 04:58 INR 1.10 (0.87-1.13) 10/21/20 04:58 D-Dimer 6325.00 ng/mlDDU (0-234) H 10/18/20 13:41 ABG pH 7.226 (7.320-7.450) L 10/19/20 13:51 POC ABG pCO2 23.9 mmHg (32.0-48.0) L 10/19/20 13:51 POC ABG pO2 114.7 mmHg (83-108) H 10/19/20 13:51 POC ABG HCO3 9.7 10/19/20 13:51 ABG O2 Saturation 98.0 (0-100) 10/19/20 13:51 POC ABG Base Excess -16.2 10/19/20 13:51 ABG Hemoglobin 11.6 (12.0-17.5) L 10/19/20 13:51 ABG Oxyhemoglobin 97.3 (94-98) 10/19/20 13:51 ABG Methemoglobin 0.3 (0.0-1.5) 10/19/20 13:51 ABG Sodium 142.8 mmol/L (136.0-145.0) 10/19/20 13:51 ABG Potassium 3.5 mmol/L (3.40-4.50) 10/19/20 13:51 ABG Chloride 120.0 mmol/L (98-107) H 10/19/20 13:51 ABG Glucose 129 mg/dL (65-95) H 10/19/20 13:51 Carboxyhemoglobin 0.4 (0.5-1.5) L 10/19/20 13:51 FiO2 % 21.0 10/19/20 13:51 Sodium 145 mmol/L (137-145) 10/21/20 04:58 Potassium 3.1 mmol/L (3.6-5.0) L 10/21/20 04:58 Chloride 118.8 mmol/L (98-107) H 10/21/20 04:58 Carbon Dioxide 12 mmol/L (22-30) L 10/21/20 04:58 Anion Gap 17 mmol/L 10/21/20 04:58 BUN 44 mg/dL (9-20) H 10/21/20 04:58 Creatinine 2.4 mg/dL (0.8-1.3) H 10/21/20 04:58 Estimated GFR 32 ml/min 10/21/20 04:58 BUN/Creatinine Ratio 18 % 10/21/20 04:58 Glucose 69 mg/dL (75-100) L 10/21/20 07:47 POC Glucose 46 mg/dL (70-105) L 10/21/20 11:53 Ketones Quantitative Negative (Negative) 10/20/20 06:56 Lactic Acid 0.90 mmol/L (0.7-2.0) 10/18/20 13:41 Calcium 7.6 mg/dL (8.4-10.2) L 10/21/20 04:58 Phosphorus 4.00 mg/dL (2.5-4.5) 10/21/20 04:58 Total Bilirubin 0.20 mg/dL (0.1-1.2) 10/18/20 04:03 Direct Bilirubin < 0.2 mg/dL (0-0.2) 10/18/20 04:03 Indirect Bilirubin 0.0 mg/dL 10/18/20 04:03 AST 17 units/L (5-40) 10/18/20 04:03 ALT 18 units/L (7-56) 10/18/20 04:03 Alkaline Phosphatase 54 units/L (35-129) 10/18/20 04:03 Total Creatine Kinase 57 units/L (55-170) 10/18/20 11:44 Total Protein 6.2 g/dL (6.3-8.2) L 10/18/20 04:03 Albumin 3.0 g/dL (3.9-5) L 10/18/20 04:03 Albumin/Globulin Ratio 0.9 % 10/18/20 04:03 Lipase 20 units/L (13-60) 10/18/20 04:03 Arterial Blood Glucose 129 mg/dL (65-95) H 10/19/20 13:51 Urine Color Yellow (Yellow) 10/18/20 07:13 Urine Turbidity Clear (Clear) 10/18/20 07:13 Urine pH 5.0 (5.0-7.0) 10/18/20 07:13 Ur Specific [place] 1.010 (1.003-1.030) 10/18/20 07:13 Urine Protein <15 mg/dl mg/dL (Negative) 10/18/20 07:13 Urine Glucose (UA) Neg mg/dL (Negative) 10/18/20 07:13 Urine Ketones Negative mg/dL (Negative) 10/20/20 07:53 Urine Blood Neg (Negative) 10/18/20 07:13 Urine Nitrite Pos (Negative) 10/18/20 07:13 Urine Bilirubin Neg (Negative) 10/18/20 07:13 Urine Urobilinogen < 2.0 mg/dL (<2.0) 10/18/20 07:13 Ur Leukocyte Esterase Tr (Negative) 10/18/20 07:13 Urine WBC (Auto) 25.0 /HPF (0.0-6.0) H 10/18/20 07:13 Urine RBC (Auto) 3.0 /HPF (0.0-6.0) 10/18/20 07:13 Urine Bacteria (Auto) 2+ /HPF (Negative) 10/18/20 07:13 Urine Creatinine 43.7 mg/dL (0.1-20.0) H 10/18/20 09:10 Urine Creatinine 44.8 mg/dL (0.1-20.0) H 10/18/20 09:10 Protein/Creatinin Ratio 0.66 10/18/20 09:10 Urine Sodium 86 mmol/L 10/18/20 09:10 Urine Total Protein 29 mg/dL (5-11.8) H 10/18/20 09:10 Microbiology: Microbiology 10/18/20 07:13 Urine,Clean Catch Urine Culture - Final Klebsiella Pneumoniae Proteus Mirabilis 10/18/20 11:44 Peripheral/Venous Blood Culture - Preliminary NO GROWTH AFTER 48 HOURS 10/18/20 11:44 Peripheral/Venous Blood Culture - Preliminary NO GROWTH AFTER 48 HOURS Seals/IV: Voiding Method Condom Catheter Active Medications - Current Medications Current Medications: Generic Name Dose Route Start Last Admin Trade Name Freq PRN Reason Stop Dose Admin Acetaminophen 650 mg 10/18/20 05:47 Acetaminophen 325 Mg Tab PO Q4H PRN Pain MILD(1-3)/Fever >100.5/CHAUDHARY Albuterol 2.5 mg 10/18/20 05:47 Albuterol 2.5 Mg/3 Ml Nebu IH Q4HRT PRN Shortness Of Breath Amlodipine Besylate 10 mg 10/18/20 10:00 10/21/20 10:47 Amlodipine 10 Mg Tab PO 10 mg DAILY PATRICK Administration Atenolol 100 mg 10/18/20 10:00 10/21/20 10:47 Atenolol 50 Mg Tab PO 100 mg BID PATRICK Administration Citric Acid/Sodium Citrate 30 ml 10/19/20 14:00 10/21/20 10:49 Bicitra Oral Liqd 30ml PO 30 ml QID PATRICK Administration Dextrose 50 ml 10/18/20 06:05 10/21/20 12:02 Dextrose 50% In Water (25gm) 50 Ml Syringe IV 50 ml Q30MIN PRN Administration Hypoglycemia Protocol Doxazosin Mesylate 2 mg 10/18/20 10:00 10/21/20 10:47 Doxazosin 1 Mg Tab PO 2 mg BID PATRICK Administration Hydralazine HCl 50 mg 10/20/20 12:00 10/21/20 06:02 Hydralazine 25 Mg Tab PO 50 mg Q8HR PATRICK Administration Hydromorphone HCl 0.5 mg 10/18/20 05:47 10/18/20 23:52 Hydromorphone 1 Mg/1 Ml Inj IV 0.5 mg Q3H PRN Administration Pain , Severe (7-10) Sodium Bicarbonate 150 meq/ 1,150 mls @ 125 mls/hr 10/21/20 12:00 Dextrose IV DIRECT [facility] Ceftriaxone Sodium 1 gm in 50 mls @ 100 mls/hr 10/21/20 12:00 Rocephin/Ns 1 Gm/50 Ml IV Q24H [facility] Insulin Glargine 10 units 10/21/20 22:00 Insulin Glargine 100 Units/Ml SUB-Q QHS [facility] Insulin Human Lispro 0 unit 10/21/20 11:30 Insulin Lispro 100 Unit/Ml SUB-Q AC [facility] Protocol Ondansetron HCl 4 mg 10/18/20 05:47 Ondansetron 4 Mg/2 Ml Inj IV Q8H PRN Nausea And Vomiting Oxycodone/Acetaminophen 1 tab 10/18/20 05:47 Oxycodone /Acetaminophen 5-325mg Tab PO Q6H PRN Pain, Moderate (4-6) Pantoprazole Sodium 20 mg 10/18/20 10:00 10/21/20 10:47 Pantoprazole 20 Mg Tab PO 20 mg QDAY [facility] Administration Potassium Bicarbonate 25 meq 10/21/20 12:00 K-Lyte 25 Meq Tablet Eff PO BID PATRICK Simethicone 80 mg 10/18/20 07:30 10/21/20 10:46 Simethicone 80 Mg Chew Tab PO 80 mg ACHS PATRICK Administration Sodium Chloride 10 ml 10/18/20 10:00 10/21/20 10:47 Sodium Chloride 0.9% 10 Ml Flush Syringe IV 10 ml BID PATRICK Administration Sodium Chloride 10 ml 10/18/20 05:47 Sodium Chloride 0.9% 10 Ml Flush Syringe IV PRN PRN LINE FLUSH Nutrition/Malnutrition Assess - Dietary Evaluation Nutrition/Malnutrition Findings: Nutrition Notes Start: 10/18/20 10:25 Freq: Status: Active Protocol: Document 10/20/20 12:26 [place] (Rec: 10/20/20 12:30 [place] [email or web address]) Nutrition Notes Need for Assessment generated from: showroom manager,MST Initial or Follow up Brief Note Current Diet Renal Height 5 ft 8 in Weight 78.2 kg Usual Body Weight 90.9 kg [place] Body Weight (kg) 70.00 BMI 26.2 Weight change and time frame Pt reports unintentional wt loss over past two yrs sec to illness (14% wt loss x two yrs ) Weight Status Appropriate Subjective/Other Information Spoke with pt via phone at 12: 27. Pt reports "wonderful" appetite; he consumed 100% of breakfast this am. Minimum of two criteria No Nutrition Intervention Follow-Up By: 10/27/20 Additional Comments F/U: stable intakes, wt
[2020-10-21] MEDS: SODIUM BICARBONATE 150 MEQ in DEXTROSE 5% IN WATER 1,000 ML IV SCH (14:14)
[2020-10-21] MEDS: MEROPENEM/NS 1 GRAM/100 ML 1 GRAM/100 ML BAG IV SCH (14:14)
[2020-10-21] MEDS: K-LYTE 25 MEQ TABLET EFF PO SCH ×2 (17:38→22:41)
[2020-10-21 19:44] LABS: Calcium 7.6 mg/dL (8.4-10.2)
[2020-10-21] MEDS ORDERED: INSULIN GLARGINE 100 UNITS/ML SUB-Q SCH (22:00)
[2020-10-21] MEDS: HYDROmorphone 1 MG/1 ML INJ IV PRN (22:40)
[2020-10-22] MEDS: MEROPENEM/NS 1 GRAM/100 ML 1 GRAM/100 ML BAG IV SCH ×3 (02:40→13:12)
[2020-10-22] MEDS: SODIUM BICARBONATE 150 MEQ in DEXTROSE 5% IN WATER 1,000 ML IV SCH ×2 (03:01→17:29)
[2020-10-22] MEDS: hydrALAZINE 25 MG TAB PO SCH ×2 (06:15→13:14)
[2020-10-22] MEDS: INSULIN LISPRO 100 UNIT/ML SUB-Q SCH ×3 (07:24→17:17)
[2020-10-22] MEDS: DEXTROSE 50% IN WATER (25GM) 50 ML SYRINGE IV PRN (07:24)
[2020-10-22] MEDS: SIMETHICONE 80 MG CHEW TAB PO SCH ×3 (07:27→17:17)
[2020-10-22 08:40] LABS: Basophils % (Auto) 0.6 % (0.0-1.8); Eosinophils # (Auto) 0.1 K/mm3 (0.0-0.4); Eosinophils % (Auto) 1.7 % (0.0-4.3); Hematocrit 31.7 % (35.5-45.6); Hemoglobin 10.7 gm/dl (11.8-15.2); Lymphocytes # (Auto) 1.2 K/mm3 (1.2-5.4); Lymphocytes % (Auto) 21.5 % (13.4-35.0); Mean Corpuscular HGB Conc 34 % (32-34); Mean Corpuscular Volume 94 fl (84-94); Monocytes # (Auto) 0.6 K/mm3 (0.0-0.8); Monocytes % (Auto) 9.9 % (0.0-7.3); Platelet Count 171 K/mm3 (140-440); Red Blood Count 3.38 M/mm3 (3.65-5.03); Red Cell Distribution Width 18.1 % (13.2-15.2)
[2020-10-22 08:51] LABS: INR 1.14 (0.87-1.13)
[2020-10-22 09:09] LABS: Calcium 7.7 mg/dL (8.4-10.2)
--- NOTE | 2020-10-22 09:46 | Progress Note ---
Assessment and Plan (1) Acute on chronic renal failure (2) Acute abdominal pain (3) AG metabolic acidosis (4) Diabetes (5) Hypertension stable kidney function Ok to be discharged from renal standpoint cont bicitra 30 cc QID with K bicarb 25 meq once a day on discharge no indication for [employer] renally dose meds strict I&O daily weight Flakito Alvarado MD [phone] Subjective Date of service: 10/22/20 Principal diagnosis: renal failure Objective - Vital Signs Vital signs: Vital Signs - 12hr 10/21/20 10/21/20 10/21/20 22:00 22:40 22:41 Respiratory 20 Rate Blood Pressure 186/90 O2 Sat by Pulse 100 Oximetry 10/21/20 10/21/20 22:43 23:10 Respiratory 18 Rate Blood Pressure 186/90 O2 Sat by Pulse Oximetry - Lab 10/22/20 07:40 10/22/20 07:40 Most recent lab results ABG pH 7.226 (7.320-7.450) L 10/19/20 13:51 ABG O2 Saturation 98.0 (0-100) 10/19/20 13:51 Calcium 7.7 mg/dL (8.4-10.2) L 10/22/20 07:40 Phosphorus 3.00 mg/dL (2.5-4.5) D 10/22/20 07:40 Urine Creatinine 43.7 mg/dL (0.1-20.0) H 10/18/20 09:10 Urine Creatinine 44.8 mg/dL (0.1-20.0) H 10/18/20 09:10 Urine Sodium 86 mmol/L 10/18/20 09:10 Urine Total Protein 29 mg/dL (5-11.8) H 10/18/20 09:10 Medications & Allergies - Medications Allergies/Adverse Reactions: Allergies Sulfa (Sulfonamide Antibiotics) Allergy (Verified 10/18/20 17:45) Unknown IV DYE Adverse Reaction (Severe, Uncoded 09/24/20 12:09) Shortness of Breath Home Medications: Home Medications Medication Instructions Recorded Confirmed Last Taken Type Amlodipine Besylate/Benazepril 10 - 20 tab PO DAILY 06/11/14 10/18/20 02/03/17 History [amLODIPine-Benazepril 10/20 mg] Omeprazole 20 mg PO DAILY 06/11/14 10/18/20 02/03/17 History Doxazosin [Cardura] 2 mg PO BID 02/04/17 10/18/20 02/03/17 History Atenolol [Tenormin] 100 mg PO DAILY 10/18/20 10/18/20 Unknown History Methocarbamol 500 mg PO DAILY 10/18/20 10/18/20 Unknown History Procrit 20,000 units SC 1XW 10/18/20 10/18/20 Unknown History Active Medications: Generic Name Dose Route Start Last Admin Trade Name Freq PRN Reason Stop Dose Admin Acetaminophen 650 mg 10/18/20 05:47 Acetaminophen 325 Mg Tab PO Q4H PRN Pain MILD(1-3)/Fever >100.5/CHAUDHARY Albuterol 2.5 mg 10/18/20 05:47 Albuterol 2.5 Mg/3 Ml Nebu IH Q4HRT PRN Shortness Of Breath Amlodipine Besylate 10 mg 10/18/20 10:00 10/21/20 10:47 Amlodipine 10 Mg Tab PO 10 mg DAILY PATRICK Administration Atenolol 100 mg 10/18/20 10:00 10/21/20 22:42 Atenolol 50 Mg Tab PO 100 mg BID PATRICK Administration Citric Acid/Sodium Citrate 30 ml 10/19/20 14:00 10/21/20 22:43 Bicitra Oral Liqd 30ml PO 30 ml QID PATRICK Administration Dextrose 50 ml 10/18/20 06:05 10/22/20 07:24 Dextrose 50% In Water (25gm) 50 Ml Syringe IV 50 ml Q30MIN PRN Administration Hypoglycemia Protocol Doxazosin Mesylate 2 mg 10/18/20 10:00 10/21/20 22:43 Doxazosin 1 Mg Tab PO 2 mg BID PATRICK Administration Hydralazine HCl 50 mg 10/20/20 12:00 10/22/20 06:15 Hydralazine 25 Mg Tab PO 50 mg Q8HR PATRICK Administration Hydromorphone HCl 0.5 mg 10/18/20 05:47 10/21/20 22:40 Hydromorphone 1 Mg/1 Ml Inj IV 0.5 mg Q3H PRN Administration Pain , Severe (7-10) Sodium Bicarbonate 150 meq/ 1,150 mls @ 125 mls/hr 10/21/20 12:00 10/22/20 03:01 Dextrose IV 125 mls/hr DIRECT PATRICK Administration MEROPENEM/NS 1 GRAM/100 ML 1 gram in 100 mls @ 100 mls/hr 10/21/20 14:00 10/22/20 02:40 Merrem/Ns 1 Gram/100 Ml IV 10/24/20 02:59 100 mls/hr Q12H PATRICK Administration Insulin Human Lispro 0 unit 10/21/20 11:30 10/22/20 07:24 Insulin Lispro 100 Unit/Ml SUB-Q Not Given [facility] Protocol Ondansetron HCl 4 mg 10/18/20 05:47 10/21/20 12:25 Ondansetron 4 Mg/2 Ml Inj IV 4 mg Q8H PRN Administration Nausea And Vomiting Oxycodone/Acetaminophen 1 tab 10/18/20 05:47 Oxycodone /Acetaminophen 5-325mg Tab PO Q6H PRN Pain, Moderate (4-6) Pantoprazole Sodium 20 mg 10/18/20 10:00 10/21/20 10:47 Pantoprazole 20 Mg Tab PO 20 mg QDAY PATRICK Administration Potassium Bicarbonate 25 meq 10/21/20 12:00 10/21/20 22:41 K-Lyte 25 Meq Tablet Eff PO 25 meq BID PATRICK Administration Simethicone 80 mg 10/18/20 07:30 10/22/20 07:27 Simethicone 80 Mg Chew Tab PO 80 mg ACHS PATRICK Administration Sodium Chloride 10 ml 10/18/20 10:00 10/21/20 22:44 Sodium Chloride 0.9% 10 Ml Flush Syringe IV 10 ml BID PATRICK Administration Sodium Chloride 10 ml 10/18/20 05:47 Sodium Chloride 0.9% 10 Ml Flush Syringe IV PRN PRN LINE FLUSH
[2020-10-22] MEDS: K-LYTE 25 MEQ TABLET EFF PO SCH (09:49)
[2020-10-22] MEDS: BICITRA ORAL LIQD 30ML PO SCH ×3 (09:49→17:18)
[2020-10-22] MEDS: DOXAZOSIN 1 MG TAB PO SCH (09:49)
[2020-10-22] MEDS: PANTOPRAZOLE 20 MG TAB PO SCH (09:50)
[2020-10-22] MEDS: amLODIPine 10 MG TAB PO SCH (09:50)
[2020-10-22] MEDS: atenoloL 50 MG TAB PO SCH (09:51)
--- NOTE | 2020-10-22 11:53 | Discharge Summary ---
Providers - Providers Date of Admission: 10/19/20 14:20 Attending physician: LEN MICHAUD MD 10/18/20 05:47 Consult to Physician [CONS] Routine Comment: Consulting Provider: RANDALL REDDY Physician Instructions: Reason For Exam: aquilino 10/18/20 06:05 Consult to Dietitian/Nutrition [CONS] Routine Physician Instructions: Reason For Exam: Reason for Consult: Diet education 10/18/20 10:09 Consult to PICC Line RN [CONS] Routine Reason For Exam: access Type Line:: Midline 10/18/20 15:19 Consult to Physician [CONS] Routine Comment: Consulting Provider: VARUN HUNTER Physician Instructions: Reason For Exam: BILATERAL Edema ?IVC filter occulusion 10/19/20 22:09 Consult to Wound/ET Nurse [CONS] Routine Reason For Exam: wound eval 10/20/20 13:04 Consult to Case Management [CONS] Routine Services Needed at Discharge: Other Notified:: CM Comment:: needs appointment with dr. mayorga @ [phone] in 1-2 weeks. Primary care physician: CLERICAL METHODS ANALYST Hospitalization Reason for admission: Shortness of breath Condition: Stable Hospital course: (1) Acute on chronic renal failure (2) Acute abdominal pain (3) AG metabolic acidosis (4) Diabetes (5) Hypertension stable kidney function Ok to be discharged from renal standpoint cont bicitra 30 cc QID with K bicarb 25 meq once a day on discharge no indication for GRINDER renally dose meds strict I&O daily weight 70 years old male with history of colon cancer, diagnosed in 2005, diabetes and hypertension was brought to the emergency room because of abdominal pain and nausea. Patient stated that he had surgery and chemotherapy for colon cancer. Patient presented to the emergency room from a local longterm via EMS for evaluation of abdominal pain. Patient stated that his abdominal pain has been going on for few days. Patient describes his pain as diffuse, crampy in nature with no radiation. Patient denied any fever or chills. Patient is nauseated but no vomiting . No diarrhea. In the emergency room patient is found to have BUN of 54 and creatinine 2.[address] scan of the abdomen shows no definite inflammatory process. Postoperative finding of small and large bowel mid small bowel dilatation which could represent enteritis, ileus or early obstruction Spoke to in detail patient was brought to the hospital last year he was noted to have labored breathing he has had this before in the past when he had pulmonary embolism they also noted to have bilateral lower extremity swelling which has been worsening he was started on Lasix recently by his primary care physician at the longterm. With no improvement. The patient also has an IVC filter as revealed by the spouse and has been off anticoagulation for a few weeks. He had a recent near fatal GI bleed and was treated at [facility] we'll request records. At this time will have vascular evaluate the patient to see if the IVC filter is clogged. Nephrology is already following the patient will defer to them if patient can be restarted on IV Lasix. His creatinine appears to be baseline from last year but I do not have any current data from recent hospitalization at [facility]. I have discussed with nursing staff to update his home medication list. 10/19: Discussed with vascular surgeon and also with panel sewer. Patient still with severe metabolic acidosis. No indication for Lasix at this time. Will start patient on LR at 75 cc an hour. Ultrasound reviewed shows bilateral chronic DVTs. Again per as noted above patient had a near fatal GI bleed still awaiting records from [facility] as requested. No further abdominal pain or nausea noted. VQ scan done did not reveal any pulmonary embolism 10/20: Continue to monitor Renal function and acidosis, anticipate discharge in AM, Discussed with Record Systems Analyst, Vascular input noted. "Patient also has IVC filter may have caval occlusion.Patient cannot tolerate anticoagulation due to GI bleeding issues. Given his inability to tolerate anticoagulation, endovascular therapies cannot be performed...Recommend compression hose. When patient follows up in the office, he may be candidate for lymphedema pump.I will obtain an arterial study given his nonpalpable left pedal pulses, but currently both lower extremities have no pain associated with them despite the swelling. Follow-up in 1 to 2 weeks" 10/21: Patient remains status quo with no clinical change. Urine culture came back growing ESBL will put on isolation again he has no symptoms no fever. No treatment indicated at this time. Will put on isolation of contact. Nephrology continues to follow on per panel sewer -stable kidney function-worsening bicarb level, negative lactic and ketones, likely due to decreased GFR, will change IVF to sodium bicarb gtt to 125 cc/h, will also add K bicarb 25 meq BID and check BMP ~1800 will recheck ABG 10/22: Patient clinically stable plan for discharge follow-up outpatient with panel sewer, accountant certified public and also a GI doctor. (1) Acute on chronic renal failure Current Visit: Yes Status: Acute Plan to address problem: Admit the patient to the medical telemetry. Half-normal saline at the rate of 100 cc/h. Avoid nephrotoxic drug. Renally dose medication repeat BMP in the morning nephrology consult. (2) severe metabolic acidosis a (3) Nausea Current Visit: Yes Status: Acute Plan to address problem: N.p.o. half-normal saline at the rate of 100 cc/h. Pepcid 20 mg IV every 12 hours. Zofran 4 mg IV every 6 hours as needed. (4) Diabetes Current Visit: No Status: Acute Plan to address problem: NPO. Half-normal saline at the rate of 100 cc/h. We will put the patient on Humalog sliding scale moderate dose coverage and Lantus 20 units subcu nightly. We will monitor the glucose closely (5) Hypertension Current Visit: No Status: Chronic Plan to address problem: Amlodipine 10 mg p.o. daily. Atenolol 100 milligrams p.o. twice daily. We will monitor the blood pressure closely (6) acute abdominal pain Current Visit: Yes Status: Acute Plan to address problem: N.p.o. half-normal saline at the rate of 100 cc/h. Pepcid 20 mg IV every 12 hours. Zofran 4 mg IV every 6 hours as needed. We will monitor the patient closely. If needed will consult GI (7) recent GI bleed (8) chronic CKD Disposition: [id number]/[place]-03 SNF [facility] CERT Final Discharge Diagnosis (Prints w/discharge instructions): Severe metabolic acidosis with respiratory compensation Time spent for discharge: 35 mins Core Measure Documentation - Palliative Care Palliative Care/ Comfort Measures: Not Applicable - Core Measures Any of the following diagnoses?: DVT/PE - VTE Discharge Requirements Deep Vein Thrombosis/Pulmonary Embolism Present on Admission: No Has pt received <5 days of overlap therapy or INR<2.0: No (criteria for overlap therapy at discharge: on overlap therapy for less than 5 days or INR<2.0) Anticoagulant overlap therapy prescribed at discharge: No Contraindication No Overlap Therapy order at [place]: Medical Contraindication Exam - Physical Exam Narrative exam: - Constitutional General appearance: Present: no acute distress, well-nourished - EENT Eyes: Present: PERRL ENT: hearing intact, clear oral mucosa - Neck Neck: Present: supple, normal ROM - Respiratory Respiratory effort: normal Respiratory: bilateral: CTA - Cardiovascular Heart Sounds: Present: S1 & S2. Absent: rub, click - Extremities Extremities: pulses symmetrical, bilateral pitting edema Peripheral Pulses: within normal limits - Abdominal General gastrointestinal: Present: soft, non-tender, non-distended, normal bowel sounds Male genitourinary: Present: normal - Integumentary Integumentary: Present: clear, warm, bilateral lower extremity pitting edema - Musculoskeletal Musculoskeletal: gait not tested, strength equal bilaterally - Psychiatric Psychiatric: appropriate mood/affect, intact judgment & insight - Neurologic Neurologic: CNII-XII intact, moves all extremities - Constitutional Vitals: Temp Pulse Resp BP Pulse Ox 98.1 F 72 18 159/78 100 10/21/20 21:13 10/22/20 09:51 10/21/20 23:10 10/22/20 09:51 10/21/20 22:00 Plan Activity: advance as tolerated, fall precautions Diet: low fat, diabetic Wound: per your surgeon's advice Special Instructions: record daily weights, record daily BP diary, record blood sugar diary Follow up with: VARUN MAYORGA MD [Staff Physician] - 7 Days SHARA BENJAMIN MD [Staff Physician] - 7 Days PRIMARY CARE, [Primary Care Provider] - 3-5 Days HARPREET KENT MD [Staff Physician] - 7 Days Prescriptions: hydrALAZINE [Apresoline TAB] 50 mg PO Q8HR #90 tablet Citric Acid/Sod Citrate [Bicitra] 30 ml PO QID #90 oral.liqd Potassium Bicarb/Citrate [Klor-Con Eff] 25 meq PO DAILY #20 tablet.eff
[2020-10-22 17:20] VITALS: BP 162/82
== END 2020-10-22 18:26 | DRG 391 ==
LOC: ED 23:57 → 3A 10-18 09:46 → OBSVTOIN 10-19 14:20 → 3A 10-19 17:47
PROVIDERS: ADMIT Hospitalist; ATTEND Internal Medicine
PROC: 05HC33Z Insertion of Infusion Device into Left Basilic Vein, Percutaneous Approach (ICD-10-PCS; 2020-10-18)
PROC: 4A033R1 Measurement of Arterial Saturation, Peripheral, Percutaneous Approach (ICD-10-PCS; principal; 2020-10-19)
DX: A09 Infectious gastroenteritis and colitis, unspecified (principal); N17.0 Acute kidney failure with tubular necrosis; E87.2 Acidosis; K21.9 Gastro-esophageal reflux disease without esophagitis; I12.9 Hypertensive chronic kidney disease with stage 1 through stage 4 chronic kidney disease, or unspecified chronic kidney disease; Z20.822 Contact with and (suspected) exposure to COVID-19; N18.9 Chronic kidney disease, unspecified; E11.22 Type 2 diabetes mellitus with diabetic chronic kidney disease; E86.0 Dehydration; Z85.038 Personal history of other malignant neoplasm of large intestine; Z79.899 Other long term (current) drug therapy; Z79.891 Long term (current) use of opiate analgesic; Z79.01 Long term (current) use of anticoagulants; Z88.2 Allergy status to sulfonamides; Z91.041 Radiographic dye allergy status; Z86.718 Personal history of other venous thrombosis and embolism; Z90.49 Acquired absence of other specified parts of digestive tract; Z93.3 Colostomy status; Z79.4 Long term (current) use of insulin
CPT/HCPCS: 36415; 36600; 71045; 74176; 78580; 80048; 80076; 81001; 82010; 82140; 82550; 82570; 82805; 82947; 82962; 83690; 84100; 84156; 84300; 85025; 85379; 85610; 87040; 87076; 87086; 87186; 93925; 93970; 94640; G0378; A9540; J0360; J1170; J1815; J2185; J2270; J2405; J7030; J7070; J7120; U0003